=== PATIENT | male | born 1960 | race Caucasian/White ===

== ENCOUNTER 2019-03-11 13:19 | Outpatient (CLI) | payer MEDICARE, SELFPAY ==
--- NOTE | 2019-03-11 13:31 | XR_ITS ---
WS: [id number] LEFT HIP HISTORY: PAIN IN LEFT HIP COMPARISON: None available. LEFT hip: No acute fracture or dislocation. No soft tissue abnormality. No bone destruction. Mild narrowing and degenerative changes involving the superior acetabulum. XR/XR hip LT 2-3V wo/w pel* [id number] IMPRESSION: 1. No hip fracture. 2. Mild early osteoarthritis involving the superior hip joint.
--- NOTE | 2019-03-11 13:31 | XR_ITS ---
WS: [id number] LATERAL LUMBAR SPINE: 3 view. Lateral radiographs are performed in upright neutral, flexion and extension to the patient's toleranc e. HISTORY: POSTLAMINECTOMY SYNDROME COMPARISON: None available. Prior posterior lumbar fusion at L5-S1. Pedicle screws and vertical rods are intact. Severe disc spac e narrowing at L5-S1 with interbody spacer. The alignment at L5-S1 is difficult to visualize. There m ay be slight anterolisthesis of L5. No definite instability is demonstrated. L3 retrolisthesis by 2 mm with no instability. No fractures. Mild spondylitic changes throughout the lumbar spine. Scattered calcifications in the aorta. XR/XR lumbar spine f/e only [id number] IMPRESSION: 1. Prior posterior lumbar fusion at L5-S1. 2. No instability is demonstrated. Alignment at L5-S1 is limited due to the po stsurgical changes and degenerative disease. Instability is not confirmed.
== END 2019-03-11 13:20 | disposition home or self-care (01) ==
LOC: RADWPI 13:25
PROVIDERS: Family Provider Family Medicine; PCP Family Medicine; Visit Provider Nurse Practitioner
DX: M96.1 Postlaminectomy syndrome, not elsewhere classified (principal); M25.552 Pain in left hip; Z98.1 Arthrodesis status; M16.12 Unilateral primary osteoarthritis, left hip
CPT/HCPCS: 72120; 73502

== ENCOUNTER 2019-04-22 20:00 | Outpatient (CLI) | payer MEDICARE, SELFPAY | END 2019-04-22 20:01 | disposition home or self-care (01) | LOC: SLEEP 04-23 09:59 | PROVIDERS: Family Provider Family Medicine; PCP Family Medicine; Visit Provider Anesthesiology Pain Medicine | DX: G47.33 Obstructive sleep apnea (adult) (pediatric) (principal) | CPT/HCPCS: 95810 ==

== ENCOUNTER → 2019-06-30 08:55 | Outpatient (BNVA) | payer MEDICARE, SELFPAY | PROVIDERS: Family Provider Family Medicine; PCP Family Medicine; Visit Provider Family Medicine | DX: I10 Essential (primary) hypertension (principal); E78.2 Mixed hyperlipidemia; M54.16 Radiculopathy, lumbar region | CPT/HCPCS: 80053; 80061; 82044; 85025 ==

== ENCOUNTER → 2019-07-01 12:55 | Outpatient (BNVA) | payer MEDICARE, SELFPAY | PROVIDERS: Family Provider Family Medicine; PCP Family Medicine; Visit Provider Family Medicine | DX: I10 Essential (primary) hypertension (principal); E78.2 Mixed hyperlipidemia; M54.16 Radiculopathy, lumbar region; F17.219 Nicotine dependence, cigarettes, with unspecified nicotine-induced disorders; D64.9 Anemia, unspecified | CPT/HCPCS: 82607 ==

== ENCOUNTER 2019-07-11 07:16 | Emergency (ER) | payer MEDICARE, SELFPAY ==
[2019-07-11 07:25] VITALS: BMI 29.9
[2019-07-11 07:30] VITALS: BP 162/96; PULSE 116; RESP 18; TEMP 36.9; O2SAT 98
[2019-07-11 07:47] VITALS: BP 139/93; BP 157/89; BP 160/99; PULSE 111; PULSE 118; PULSE 120
--- NOTE | 2019-07-11 07:47 | CTR_ITS ---
PROCEDURE INFORMATION: Exam: CT Head Without Contrast Exam date and time: 07/11/2019 7:50 AM Age: 59 years old Clinical indication: Injury or trauma; Fall; Additional info: Dizzy TECHNIQUE: Imaging protocol: Computed tomography of the head without contrast. Radiation optimization: All CT scans at this facility use at least one of these dose optimization techniques: automated exposure control; mA and/or kV adjustment per patient size (includes targeted exams where dose is matched to clinical indication); or iterative reconstruction. COMPARISON: No relevant prior studies available. RADIATION DOSE METRICS: Total DLP: 883.57 mGy-cm FINDINGS: Brain: Normal. No hemorrhage. Unremarkable white matter. No mass effect. Ventricles: Normal. No ventriculomegaly. Bones/joints: Unremarkable. No acute fracture. Sinuses: Visualized sinuses are unremarkable. No fluid levels. Mastoid air cells: Visualized mastoid air cells are well aerated. Soft tissues: Unremarkable. Other findings: Hemispheric volume loss. CT/CT head wo con* [id number] IMPRESSION: 1. No acute intracranial process. Radiation Dose CTDIVOL = (mGy): DLP = 883.57 (mGy-cm)
--- NOTE | 2019-07-11 07:47 | CTR_ITS ---
PROCEDURE INFORMATION: Exam: CT Maxillofacial Without Contrast Exam date and time: 07/11/2019 7:50 AM Age: 59 years old Clinical indication: Injury or trauma; Fall; Initial encounter; Blunt trauma (contusions or hematomas); Nose TECHNIQUE: Imaging protocol: Computed tomography images of the face without contrast. Radiation optimization: All CT scans at this facility use at least one of these dose optimization techniques: automated exposure control; mA and/or kV adjustment per patient size (includes targeted exams where dose is matched to clinical indication); or iterative reconstruction. COMPARISON: No relevant prior studies available. RADIATION DOSE METRICS: Total DLP: 773.78 mGy-cm FINDINGS: Orbits: Orbits are normal. Globes are unremarkable. Bones/joints: Acute posttraumatic comminuted mildly displaced nasal bone fractures anteriorly. Fracture of the anterior aspect of the bony nasal septum and there is possible buckle fracture more posteriorly with irregularity. Acute fracture of the maxillary spine mildly displaced. Sinuses: Mucosal thickening left maxillary sinus. Dental: Dental caries with prominent dental metallic artifact. Scattered absence of dentition. Vasculature: Bilateral carotid vascular calcification. Soft tissues: Overlapping anterior nasal soft tissue edema. Other findings: Plate fixation partially visible at C4. CT/CT facial bones wo con* [id number] IMPRESSION: 1. Displaced comminuted anterior nasal bone fractures. 2. Maxillary spine fracture. 3. Anterior and more posterior comminuted bony nasal septal fracture. 4. Overlapping nasal soft tissue edema. 5. Left maxillary sinusitis. Radiation Dose CTDIVOL = (mGy): DLP = 773.78 (mGy-cm)
--- NOTE | 2019-07-11 07:47 | CTR_ITS ---
PROCEDURE INFORMATION: Exam: CT Cervical Spine Without Contrast Exam date and time: 07/11/2019 7:50 AM Age: 59 years old Clinical indication: Injury or trauma; Fall; Initial encounter; Blunt trauma TECHNIQUE: Imaging protocol: Computed tomography images of the cervical spine without contrast. Radiation optimization: All CT scans at this facility use at least one of these dose optimization techniques: automated exposure control; mA and/or kV adjustment per patient size (includes targeted exams where dose is matched to clinical indication); or iterative reconstruction. COMPARISON: [place] [id number] 11/27/2018 2:36 PM RADIATION DOSE METRICS: Total DLP: 717.89 mGy-cm FINDINGS: Vertebrae: Anterior plate fixation C4-C5 with interspace device at C4. Prominent degenerative hypertrophic formation C5-C6. Additional separate anterior plate fixation C6-C7 with interspace fusion at C6. No evidence of hardware complication. C2-C3: No significant disc protrusion. No severe spinal canal stenosis. No significant neural foraminal narrowing. C3-C4: No significant disc protrusion. No severe spinal canal stenosis. No significant neural foraminal narrowing. C4-C5: No severe canal stenosis. Mild bilateral neural foraminal narrowing greater on the left predominantly secondary to uncinate process hypertrophy. C5-C6: Mild right neural foraminal narrowing secondary to uncinate process hypertrophy. No severe canal stenosis. C6-C7: Posterior endplate irregularity without severe canal stenosis. Mild bony foraminal narrowing on the left. C7-T1: No significant disc protrusion. No severe spinal canal stenosis. No significant neural foraminal narrowing. Soft tissues: Areas of irregular nuchal ligament calcification posterior to the spinous process at C7 and T1. Findings at spinous process of C7 could additionally include a chronic or remote posttraumatic appearance. Auditory system: Soft tissue density at the left external auditory canal. Vasculature: Bilateral carotid vascular calcification. Lungs: Subpleural bleb formation lung apices. CT/CT cervical spin wo con* [id number] IMPRESSION: 1. No acute fracture. 2. Degenerative changes cervical spine. Radiation Dose CTDIVOL = (mGy): DLP = 717.89 (mGy-cm)
--- NOTE | 2019-07-11 07:49 | W.ED.FALL ---
HPI - Fall General: Chief Complaint: Fall Stated Complaint: dizzy/vision changes Time Seen by Provider: 07/11/19 07:28 History of Present Illness: HPI Narrative: 59-year-old male complaining of dizziness for the past month or so. He states he has had frequent falls, nearly always falling on his face. He presents with bruises and swelling to his forehead and nose. He states that his is told him his arms do not even go out to catch himself when he falls. He has been dizzy, with vertigo type symptoms as well. No trouble with speech. He has had blurry vision on and off. He does not feel weak. MD complaint: fall Fall from: standing Fall witnessed: yes, by family Place fall occurred: home Loss of consciousness: Unsure Prolonged down time: no Context: history of frequent falls Location of injury: head and face Associated symptoms-after fall: Reports headache(s), neck pain and vertigo; Denies abdominal pain, chest pain, confusion or hematuria Review of Systems Const: Denies: fever(s) or chills Eyes: Denies: change in vision or blurry vision ENMT: Reports: sinus pain; Denies: odynophagia, bleeding gums, dental pain, change in hearing or post nasal drip Card: Reports: dyspnea on exertion; Denies: chest pain, palpitations, irregular heart rhythm, edema, swelling of feet/ankles or orthopnea Resp: Denies: productive cough, non-productive cough or wheezing GI: Denies: abdominal pain, nausea, vomiting, rectal pain, hematochezia or melena : Denies: difficulty urinating, dysuria or hematuria Musc: Reports: neck pain; Denies: back pain or joint redness Skin/Breast: Denies: rash, pruritus or erythema Neuro: Reports: headache(s), dizziness and vertigo; Denies: confusion or seizure-like activity Psych: Denies: anxiety or auditory hallucinations PFSH ED PFSH: Medical History (Updated 07/11/19 @ 10:40 by Brigido Pavon DO) Anxiety Chronic lumbar radiculopathy Essential (primary) hypertension Gouty arthritis Mixed hyperlipidemia S/p nephrectomy Surgical History H/O ankle fusion H/O neck surgery History of back surgery S/P hernia repair S/P splenectomy Family History Father CAD (coronary artery disease) Diabetes Mother Cancer Social History Smoking and tobacco status: current every day smoker cigarettes Packs smoked per day: 1 Alcohol intake: current Alcohol intake frequency: holidays/special occasions only Physical Exam Const: GENERAL APPEARANCE: well developed ORIENTATION/CONSCIOUSNESS: Yes oriented to person, Yes oriented to place and Yes oriented to time HENMT: COMMON NORMALS: external ears normal and Normal external nose present HEAD & SCALP: no scalp tenderness FACE & SINUS: other (Ecchymosis with swelling and abrasion to the forehead and nose, no septal hematoma.) NOSE: Normal external nose present and No nasal discharge present EXTERNAL EAR: Yes external ears normal MOUTH: tongue normal THROAT: posterior oropharynx normal; no peritonsillar mass Eye: COMMON NORMALS: Equal, round and reactive pupils present, EOMs intact bilaterally and conjunctivae normal EYELID: eyelids normal CONJUNCTIVA: Yes conjunctivae normal PUPIL: Yes Equal, round and reactive pupils present Neck/C-Spine: COMMON NORMALS: full ROM GENERAL: No tracheal deviation CERVICAL SPINE: Yes Cervical spine tenderness Chest: COMMONS NORMALS: normal inspection of the chest CHEST: No tenderness Resp: COMMON NORMALS: clear to auscultation bilaterally EFFORT & INSPECTION: No tachypneic, No respiratory distress, No retractions, No uses accessory muscles and No tracheal deviation AUSCULTATION: clear to auscultation bilaterally, no rhonchi, no wheezes and lung sounds not diminished Cardio: COMMON NORMALS: regular rhythm RATE: tachycardic RHYTHM: regular rhythm HEART SOUNDS: no murmurs PERIPHERAL PULSES: radial pulses present GI: INSPECTION: No abdominal distension AUSCULTATION: No Hyperactive bowel sounds present and No Hypoactive bowel sounds present PALPATION: No Guarding due to palpation present (GI) and No Rigid due to palpation PERCUSSION: no dullness to percussion and no tympanic to percussion Neuro: SENSORIUM/ORIENTATION: Yes oriented to person, Yes oriented to place and Yes oriented to time Psych: COMMON NORMALS: mental status grossly normal Skin: COMMON NORMALS: no rashes or lesions noted GENERAL SKIN EXAM: no rashes or lesions noted Course Vital Signs: Vital signs: Vital Signs Temperature 98.4 F 07/11/19 07:30 Pulse Rate 109 H 07/11/19 10:42 Respiratory Rate 18 07/11/19 10:42 Blood Pressure 148/94 07/11/19 10:42 Pulse Oximetry 98 07/11/19 10:42 MDM - Fall MDM Narrative: Medical decision making narrative: 59-year-old male reporting frequent falls over the last month. He is a bit shaky on exam. His alcohol level is 21. He is likely withdrawing from alcohol, which may be the cause of his falling. His laboratory is benign. His head CT is negative. He does have nasal bone fractures he will be referred to ENT for this. He refused to give a urine, which is another confounding issue he will be discharged. Lab Data: Labs: Lab Results 07/11/19 07/11/19 07/11/19 Range/Units 08:14 08:14 08:14 WBC 8.1 (4.0-10.0) 10^3/ uL RBC 3.98 L (4.1-5.3) 10^6/u L Hgb 13.2 (11.7-16.6) g/dL Hct 39.4 L (42.0-52.0) % MCV 99.0 H (80-94) fL MCH 33.2 (28.0-34.0) pg MCHC 33.5 (30.0-36.0) g/dL RDW 14.6 (12.1-15.1) % Plt Count 532 H (130-400) 10^3/c mm MPV 9.7 (7.4-10.4) fL Neut % (Auto) 51.7 % Lymph % (Auto) 33.2 % [place] % (Auto) 11.1 % Eos % (Auto) 1.7 % Baso % (Auto) 2.2 % Neut # (Auto) 4.2 (1.8-7.7) 10^3/u L Lymph # (Auto) 2.7 (0.8-4.8) 10^3/u L [place] # (Auto) 0.9 (0.2-0.9) 10^3/u L Eos # (Auto) 0.1 (0.0-0.8) 10^3/u L Baso # (Auto) 0.2 H (0.0-0.1) 10^3/u L Nucleated RBC % (a uto) 0 % Nucleated RBCs # 0.0 /100WBC PT 14.00 H (10.5-13.3) SECO NDS INR 1.05 (0.8-1.2) APTT 26.7 (23.9-36.7) SECO NDS Sodium 137 (136-145) mmol/L Potassium 4.5 (3.5-5.1) mmol/L Chloride 98 (98-107) mmol/L Carbon Dioxide 23 (22-29) mmol/L Anion Gap 20.5 H (5-19) BUN 16 (6-20) mg/dL Creatinine 1.0 (0.7-1.2) mg/dL GFR Calculation 76.5 L (90-130) mL/min Glucose 91 (65-115) mg/dL Calculated Osmolal ity 280 L (285-295) mOsm/k g Calcium 9.8 (8.5-10.5) mg/dL Phosphorus 4.0 (2.5-4.5) mg/dL Total Bilirubin 0.6 (0.15-1.2) mg/dL AST 24 (0-40) U/L ALT 13 (0-41) U/L Alkaline Phosphata se 80 (40-130) IU/L Creatine Kinase 59 (39-308) U/L Troponin T Baselin e (0-15) ng/mL Total Protein 7.7 (6.6-8.7) g/dL Albumin 4.4 (3.5-5.2) g/dL Globulin 3.3 (1.3-4.6) g/dL Ethyl Alcohol 21 H (0-10) mg/dL /30/20 Range/Units 08:14 WBC (4.0-10.0) 10^3/ uL RBC (4.1-5.3) 10^6/u L Hgb (11.7-16.6) g/dL Hct (42.0-52.0) % MCV (80-94) fL MCH (28.0-34.0) pg MCHC (30.0-36.0) g/dL RDW (12.1-15.1) % Plt Count (130-400) 10^3/c mm MPV (7.4-10.4) fL Neut % (Auto) % Lymph % (Auto) % [place] % (Auto) % Eos % (Auto) % Baso % (Auto) % Neut # (Auto) (1.8-7.7) 10^3/u L Lymph # (Auto) (0.8-4.8) 10^3/u L [place] # (Auto) (0.2-0.9) 10^3/u L Eos # (Auto) (0.0-0.8) 10^3/u L Baso # (Auto) (0.0-0.1) 10^3/u L Nucleated RBC % (a uto) % Nucleated RBCs # /100WBC PT (10.5-13.3) SECO NDS INR (0.8-1.2) APTT (23.9-36.7) SECO NDS Sodium (136-145) mmol/L Potassium (3.5-5.1) mmol/L Chloride (98-107) mmol/L Carbon Dioxide (22-29) mmol/L Anion Gap (5-19) BUN (6-20) mg/dL Creatinine (0.7-1.2) mg/dL GFR Calculation (90-130) mL/min Glucose (65-115) mg/dL Calculated Osmolal ity (285-295) mOsm/k g Calcium (8.5-10.5) mg/dL Phosphorus (2.5-4.5) mg/dL Total Bilirubin (0.15-1.2) mg/dL AST (0-40) U/L ALT (0-41) U/L Alkaline Phosphata se (40-130) IU/L Creatine Kinase (39-308) U/L Troponin T Baselin e 7 (0-15) ng/mL Total Protein (6.6-8.7) g/dL Albumin (3.5-5.2) g/dL Globulin (1.3-4.6) g/dL Ethyl Alcohol (0-10) mg/dL Discharge Plan Discharge Patient Disposition: Home, Self-Care Clinical Impression: Fracture of face bones Qualifiers: Encounter type: initial encounter Facial bone/location: unspecified site of maxillary bone Fracture type: closed Laterality: unspecified laterality Qualified Code(s): S02.401A - Maxillary fracture, unspecified side, initial encounter for closed fracture Condition: Stable Prescriptions: [place] 5-325 mg tablet 1 tab PO Q6H PRN (Reason: pain) Qty: 7 RF: 0 No Action allopurinol 100 mg tablet 100 mg PO DAILY RF: 0 amitriptyline 50 mg tablet 50 mg PO DAILY Qty: 30 RF: 0 Sleeping 50 mg Capsule 50 mg PO PRN PRN (Reason: Sleep) RF: 0 Aleve 220 mg Tablet 220 mg PO Q8H PRN (Reason: Pain) RF: 0 Zocor 10 mg tablet 10 mg PO DAILY RF: 0 lisinopril 10 mg tablet 10 mg PO DAILY RF: 0 Discharge Orders: Discharge Order (Routine); Ordered 07/11/19 Ordered By: Brigido Pavon Referrals: Chad Sandoval MD [Physician] - 4-7 days Caroline Jauregui DO [Primary Care Provider] - 4-7 days Discharge Diet: Advance as tolerated Discharge Activity: Increase activity as tolerated Patient Instructions: Facial Fracture (ED) Activity Restrictions/Additional Instructions: Call Saturday to make an appointment with ENT regarding your facial fractures for follow-up. Do not drive a vehicle until cleared by your physician. Abstain from alcohol, as it can make falls worse. Return for new or other concerning symptoms. Discharge Date/Time: 07/11/19 10:42 Coding Level of Care Code ED Marketing Admin for Tee Fwd Exam Comprehensive
[2019-07-11 08:20] LABS: Basophils # 0.2 10^3/uL (0.0-0.1); Basophils % 2.2 %; Eosinophils # 0.1 10^3/uL (0.0-0.8); Eosinophils % 1.7 %; Hematocrit 39.4 % (42.0-52.0); Hemoglobin 13.2 g/dL (11.7-16.6); Lymphocytes # 2.7 10^3/uL (0.8-4.8); Lymphocytes % 33.2 %; Mean Corpuscular HGB Conc 33.5 g/dL (30.0-36.0); Mean Corpuscular Hemoglobin 33.2 pg (28.0-34.0); Mean Platelet Volume 9.7 fL (7.4-10.4); Monocytes # 0.9 10^3/uL (0.2-0.9); Monocytes % 11.1 %; Neutrophils # 4.2 10^3/uL (1.8-7.7); Neutrophils % 51.7 %; Nucleated Red Blood Cells % 0 %; Platelet Count 532 10^3/cmm (130-400); Red Blood Count 3.98 10^6/uL (4.1-5.3); Red Cell Distribution Width 14.6 % (12.1-15.1); White Blood Count 8.1 10^3/uL (4.0-10.0)
[2019-07-11 08:42] LABS: Alanine Aminotransferase 13 U/L (0-41); Albumin Level 4.4 g/dL (3.5-5.2); Alcohol Level 21 mg/dL (0-10); Alkaline Phosphatase 80 IU/L (40-130); Anion Gap 20.5 (5-19); Aspartate Amino Transferase 24 U/L (0-40); Blood Urea Nitrogen 16 mg/dL (6-20); Calcium 9.8 mg/dL (8.5-10.5); Carbon Dioxide 23 mmol/L (22-29); Chloride 98 mmol/L (98-107); Creatine Phosphokinase 59 U/L (39-308); Globulin 3.3 g/dL (1.3-4.6); Glomerular Filtration Rate 76.5 mL/min (90-130); Glucose 91 mg/dL (65-115); Osmolality Calculated 280 mOsm/kg (285-295); Potassium 4.5 mmol/L (3.5-5.1); Sodium 137 mmol/L (136-145); Total Bilirubin 0.6 mg/dL (0.15-1.2); Total Protein 7.7 g/dL (6.6-8.7); Troponin(5th) Baseline 7 ng/mL (0-15)
[2019-07-11 08:58] VITALS: BP 153/92
[2019-07-11] MEDS: ondansetron 4 MG Tablet PO (09:14)
[2019-07-11 09:30] LABS: INR 1.05 (0.8-1.2)
[2019-07-11 09:31] LABS: Partial Thromboplastin Time 26.7 SECONDS (23.9-36.7)
--- NOTE | 2019-07-11 10:29 | PC.NURSE ---
UA Attempted to collect urine for the third time, patient stated he has already attempted twice and could not go. Initially asked during initial assessment and 2 hours after assessment as well
[2019-07-11 10:42] VITALS: BP 148/94; PULSE 109; RESP 18; O2SAT 98
--- NOTE | 2019-07-14 15:34 | DCPLANNER ---
Addendum entered by Elena David 07/16/19 15:32: Patient had a follow up appointment with Dr. Parson, ENT on 07.14.19, patient did attend the appointment. Original Note: seed corn manager production had message to schedule a follow up appointment for patient with ENT, Dr. Parson. seed corn manager production faxed patients information to the ENT clinic. Clinic will call family independence case manager and patient with appointment information.
== END 2019-07-11 10:42 | disposition home or self-care (01) ==
PROVIDERS: Emergency Provider Emergency Medicine; Family Provider Family Medicine; PCP Family Medicine
DX: S02.2XXA Fracture of nasal bones, initial encounter for closed fracture (principal); S02.401A Maxillary fracture, unspecified side, initial encounter for closed fracture; W19.XXXA Unspecified fall, initial encounter; I10 Essential (primary) hypertension; E78.2 Mixed hyperlipidemia; Z90.5 Acquired absence of kidney; F17.210 Nicotine dependence, cigarettes, uncomplicated; Z79.899 Other long term (current) drug therapy
CPT/HCPCS: 12345; 36415; 70450; 70486; 72125; 80053; 80307; 82550; 84100; 84484; 85025; 85610; 85730; 99282; 99284; Q0162

== ENCOUNTER 2019-07-16 07:23 | Outpatient (CLI) | payer MEDICARE, SELFPAY ==
[2019-07-16 08:01] LABS: Basophils # 0.1 10^3/uL (0.0-0.1); Basophils % 1.4 %; Eosinophils # 0.5 10^3/uL (0.0-0.8); Eosinophils % 5.8 %; Hematocrit 36.9 % (42.0-52.0); Hemoglobin 12.3 g/dL (11.7-16.6); Lymphocytes # 3.3 10^3/uL (0.8-4.8); Lymphocytes % 38.1 %; Mean Corpuscular HGB Conc 33.3 g/dL (30.0-36.0); Mean Corpuscular Hemoglobin 33.7 pg (28.0-34.0); Mean Corpuscular Volume 101.1 fL (80-94); Mean Platelet Volume 9.9 fL (7.4-10.4); Monocytes % 11.6 %; Neutrophils # 3.7 10^3/uL (1.8-7.7); Nucleated Red Blood Cells % 0 %; Platelet Count 317 10^3/cmm (130-400); Red Blood Count 3.65 10^6/uL (4.1-5.3); Red Cell Distribution Width 15.4 % (12.1-15.1); White Blood Count 8.6 10^3/uL (4.0-10.0)
[2019-07-16 08:13] LABS: Anion Gap 14.5 (5-19); Blood Urea Nitrogen 14 mg/dL (6-20); Calcium 9.5 mg/dL (8.5-10.5); Carbon Dioxide 24 mmol/L (22-29); Chloride 102 mmol/L (98-107); Glomerular Filtration Rate 68.5 mL/min (90-130); Glucose 105 mg/dL (65-115); Osmolality Calculated 279 mOsm/kg (285-295); Potassium 4.5 mmol/L (3.5-5.1); Sodium 136 mmol/L (136-145)
--- NOTE | 2019-07-16 09:59 | ECG_ITS ---
Measurements Intervals [place] Rate: 92 P: 37 NM: 163 QRS: 6 QRSD: 88 T: 39 QT: 334 QTc: 415 SINUS RHYTHM INTERPRETATION BASED ON A DEFAULT AGE OF 40 YEARS No previous ECG available for comparison Electronically Signed On 07-16-2019 11:15:29 CDT by Medardo Davison M.D. [email or web address]
== END 2019-07-16 07:24 | disposition home or self-care (01) ==
LOC: RT 07:27
PROVIDERS: Family Provider Family Medicine; PCP Family Medicine; Visit Provider Specialist
DX: R42 Dizziness and giddiness (principal)
CPT/HCPCS: 80048; 85025; 93005

== ENCOUNTER → 2019-11-02 08:34 | Outpatient (BNVA) | payer MEDICARE, SELFPAY | PROVIDERS: Family Provider Family Medicine; PCP Family Medicine; Referring Provider Family Medicine; Visit Provider Licensed Practical Nurse | DX: M96.1 Postlaminectomy syndrome, not elsewhere classified (principal); F17.210 Nicotine dependence, cigarettes, uncomplicated | CPT/HCPCS: 99204 ==

== ENCOUNTER 2019-11-20 08:27 | Outpatient (CLI) | payer MEDICARE, SELFPAY ==
--- NOTE | 2019-11-20 08:50 | CT_ITS ---
WS: [id number] CT MYELOGRAM LUMBAR SPINE HISTORY: Low back pain TECHNIQUE: Contiguous 2.5 mm axial imaging performed from T12 through the mid sacral level. Bone and soft tissue windows reviewed. Sagittal and coronal reformats are submitted and reviewed. DLP: 1505.[address] scans at [facility] use at least one of these dose optimization techniques: automat ed exposure control; mA and/or kV adjustment per patient size (includes targeted exams where dose is matched to clinical indication); or iterative reconstruction. COMPARISON: 05/18/2018 MRI. Good distention of the thecal sac with contrast. Prior posterior lumbar fusion at L5-S1 with interbod y spacer. Mild narrowing of the disc space. The hardware is intact. L1-L2: L2-L3: Very slight annular disc bulging and osteophyte disease. No significant stenosis. L3-L4: Mild annular disc bulging and osteophytic ridging. There is minimal encroachment upon the vent ral thecal sac without significant stenosis. L4-L5: Mild hypertrophic bone formation and annular disc bulging. Soft tissue extends into the LEFT l ateral recess measuring 10 x 9 mm. Flattening of the LEFT lateral thecal sac. This was not present on the prior MRI or CT from 05/18/2018 and favor this is a disc protrusion. This would be contacting the L5 nerve root and also the nerve roots within the thecal sac. Moderate bilateral foraminal narrowing. L5-S1: Large posterior laminectomy defects. Thecal sac is patulous. Nerve roots are becoming peripher ally distributed in the thecal sac. No definite disc herniations are evident. Quality of the examinat ion is somewhat limited by the body habitus. Moderate bilateral foraminal narrowing. LEFT kidney has been surgically removed. Moderate atherosclerosis of aorta. CT/CT lumbar spine w con [id number] IMPRESSION: 1. Status post posterior lumbar fusion at L5-S1 with interbody spacer and larg e posterior laminectomy defects. 2. Soft tissue extending into the LEFT lateral recess at L4-5 with encroachmen t and displacement of the thecal sac and the L5 nerve root. As this was not pre sent on the prior studies I suspect this is probably a new moderate-sized disc protrusion. 3. Moderate bilateral foraminal stenosis at L4-5 and L5-S1.
--- NOTE | 2019-11-20 08:50 | CT_ITS ---
WS: [id number] CT CERVICAL MYELOGRAM HISTORY: Neck pain Technique: All CT scans at [facility] use at least one of these dose optimization techniq ues: automated exposure control; mA and/or kV adjustment per patient size (includes targeted exams wh ere dose is matched to clinical indication); or iterative reconstruction. DLP: 2246.23 mGycm COMPARISON: Neck pain. Good opacification of thecal sac with contrast. Straightening of the normal cervical lordosis. Prior anterior cervical fusion with interbody spacer a t C4-5. Additional separate anterior cervical fusion at C6-7 with interbody spacer. Fusion across the interbody spacers. There is very slight LEFT curvature of the cervical spine. Craniocervical junctio n is normal. The odontoid is intact. Soft tissue calcifications posteriorly in the lower cervical reg ion. No fractures. C1-C2: Normal. C2-C3: Normal. C3-C4: Small osteophytes encroaching upon the thecal sac. C4-C5: Mild osteophytic ridging with osteophytosis encroaching upon the thecal sac. There is mild marcie tral and bilateral foraminal stenosis. Slightly larger osteophyte LEFT lateral. C5-C6: Mild osteophytic ridging with facet joint arthritis. Very mild RIGHT foraminal narrowing. C6-C7: Hypertrophic bone formation encroaching upon the thecal sac. Mild narrowing of the central can al and foramen. RIGHT apical paraseptal emphysema. Carotid artery atherosclerosis is mild. CT/CT cervical spine w con [id number] IMPRESSION: 1. Prior anterior cervical fusions with interbody spacers at C4-5 and C6-7. 2. Mild central and bilateral foraminal stenosis at C4-5. 3. Multilevel osteophytosis with minimal encroachment upon the thecal sac from the C3-C7 levels. No high-grade stenosis.
--- NOTE | 2019-11-20 08:50 | IR_ITS ---
WS: [id number] CERVICAL AND LUMBAR MYELOGRAMs HISTORY: Low back pain COMPARISON: 03/11/2019 FLUOROSCOPY TIME: 3.0 minutes. Procedure, risks and complications were explained to the patient. Risks including bleeding, infection , headaches, allergic reaction and seizures. Consent has been obtained. With the patient in prone position the skin over the lumbar region is cleansed with ChloraPrep and an esthetized with lidocaine. 22-gauge spinal needle is inserted into the thecal sac at the appropriate level determined by fluoroscopy. Omnipaque 300; 13 ml is injected slowly under fluoroscopy with no co mplications. Needle bevel is perpendicular to the longitudinal fibers of the dura. Stylet is reinsert ed prior to removal of the needle. Patient tolerated the procedure well. Patient will proceed to CT f or further evaluation. Prior anterior cervical fusions at C4-5 and C6-7. Fusion across the interbody spacers at the fusion l evels. The posterior alignment is normal. No instability with flexion or extension but there is very little movement also. There is very slight anterolisthesis of C5 by less than 2 mm. Prior posterior lumbar fusion at L5-S1 with mild narrowing of the disc space and interbody fusion. Po sterior alignment is normal. With flexion and extension no instability is demonstrated. No fractures. Multilevel endplate osteophytes. Scattered atherosclerosis abdominal aorta. IR/IR myelogram spine cervic/lumb IMPRESSION: 1. Prior anterior cervical fusions with interbody spacers at C4-5 and C6-7. 2. Prior lumbar fusion at L5-S1 with interbody spacer. 3. No significant cervical or lumbar spine instability. 4. Very slight anterior listhesis of C5 by less than 2 mm.
[2019-11-20] MEDS: iohexol 300 mg/mL 50 mL Btl INTRATHECA (10:25)
== END 2019-11-20 08:28 | disposition home or self-care (01) ==
LOC: RADWPI 08:30
PROVIDERS: Family Provider Family Medicine; PCP Family Medicine; Visit Provider Licensed Practical Nurse
DX: M43.22 Fusion of spine, cervical region (principal); M43.27 Fusion of spine, lumbosacral region; M96.1 Postlaminectomy syndrome, not elsewhere classified; M48.061 Spinal stenosis, lumbar region without neurogenic claudication; M48.07 Spinal stenosis, lumbosacral region; M48.02 Spinal stenosis, cervical region
CPT/HCPCS: 62305; 72040; 72120; 72126; 72132; Q9967

== ENCOUNTER → 2019-11-24 07:52 | Outpatient (BNVA) | payer MEDICARE, SELFPAY | PROVIDERS: Family Provider Family Medicine; PCP Family Medicine; Visit Provider Licensed Practical Nurse | DX: M51.16 Intervertebral disc disorders with radiculopathy, lumbar region (principal); Z98.890 Other specified postprocedural states; F17.210 Nicotine dependence, cigarettes, uncomplicated | CPT/HCPCS: 99214 ==

== ENCOUNTER → 2019-11-30 08:15 | Outpatient (BNVA) | payer MEDICARE, SELFPAY | PROVIDERS: Family Provider Family Medicine; PCP Family Medicine; Referring Provider Licensed Practical Nurse; Visit Provider Anesthesiology Pain Medicine | DX: M51.16 Intervertebral disc disorders with radiculopathy, lumbar region (principal); M54.9 Dorsalgia, unspecified; M96.1 Postlaminectomy syndrome, not elsewhere classified; F17.210 Nicotine dependence, cigarettes, uncomplicated; Z79.891 Long term (current) use of opiate analgesic | CPT/HCPCS: 99205 ==

== ENCOUNTER → 2019-12-07 12:40 | Outpatient (BNVA) | payer MEDICARE, SELFPAY | PROVIDERS: Family Provider Family Medicine; PCP Family Medicine; Visit Provider Anesthesiology Pain Medicine | DX: M54.16 Radiculopathy, lumbar region (principal); M96.1 Postlaminectomy syndrome, not elsewhere classified; M54.9 Dorsalgia, unspecified; F17.210 Nicotine dependence, cigarettes, uncomplicated; Z79.891 Long term (current) use of opiate analgesic | CPT/HCPCS: 64483; 64484; J1100; J3490 ==

== ENCOUNTER → 2019-12-21 12:27 | Outpatient (BNVA) | payer MEDICARE, SELFPAY | PROVIDERS: Family Provider Family Medicine; PCP Family Medicine; Visit Provider Anesthesiology Pain Medicine | DX: M51.16 Intervertebral disc disorders with radiculopathy, lumbar region (principal); M48.062 Spinal stenosis, lumbar region with neurogenic claudication; Z79.891 Long term (current) use of opiate analgesic | CPT/HCPCS: 64483; 64484; J1100; J3490 ==

== ENCOUNTER → 2019-12-30 13:41 | Outpatient (BNVA) | payer MEDICARE, SELFPAY | PROVIDERS: Family Provider Family Medicine; PCP Family Medicine; Visit Provider Specialist | DX: M51.16 Intervertebral disc disorders with radiculopathy, lumbar region (principal); G62.9 Polyneuropathy, unspecified; F17.210 Nicotine dependence, cigarettes, uncomplicated | CPT/HCPCS: 95909 ==

== ENCOUNTER → 2019-12-31 08:35 | Outpatient (BNVA) | payer MEDICARE, SELFPAY | PROVIDERS: Family Provider Family Medicine; PCP Family Medicine; Visit Provider Family Medicine | DX: I10 Essential (primary) hypertension (principal); E78.2 Mixed hyperlipidemia; Z23 Encounter for immunization; M51.16 Intervertebral disc disorders with radiculopathy, lumbar region; F17.219 Nicotine dependence, cigarettes, with unspecified nicotine-induced disorders | CPT/HCPCS: 80053; 80061 ==

== ENCOUNTER → 2020-01-04 08:02 | Outpatient (BNVA) | payer MEDICARE, SELFPAY | PROVIDERS: Family Provider Family Medicine; PCP Family Medicine; Visit Provider Specialist | DX: M96.1 Postlaminectomy syndrome, not elsewhere classified (principal); M51.16 Intervertebral disc disorders with radiculopathy, lumbar region; F17.210 Nicotine dependence, cigarettes, uncomplicated | CPT/HCPCS: 95860 ==

== ENCOUNTER → 2020-01-11 10:33 | Outpatient (BNVA) | payer MEDICARE, SELFPAY | PROVIDERS: Family Provider Family Medicine; PCP Family Medicine; Visit Provider Anesthesiology Pain Medicine | DX: M51.16 Intervertebral disc disorders with radiculopathy, lumbar region (principal); M48.062 Spinal stenosis, lumbar region with neurogenic claudication; M54.9 Dorsalgia, unspecified; M96.1 Postlaminectomy syndrome, not elsewhere classified; F17.210 Nicotine dependence, cigarettes, uncomplicated; Z79.891 Long term (current) use of opiate analgesic | CPT/HCPCS: 99213; 99214 ==

== ENCOUNTER → 2020-01-26 09:21 | Outpatient (BNVA) | payer MEDICARE, SELFPAY | PROVIDERS: Family Provider Family Medicine; PCP Family Medicine; Visit Provider Family Medicine | DX: Z01.818 Encounter for other preprocedural examination (principal) | CPT/HCPCS: 80053; 85025 ==

== ENCOUNTER → 2020-02-10 10:47 | Day surgery (SDC) | payer MEDICARE, SELFPAY | PROVIDERS: PCP Family Medicine; Visit Provider Orthopaedic Surgery | DX: Z20.828 Contact with and (suspected) exposure to other viral communicable diseases (principal) | CPT/HCPCS: 87635 ==

== ENCOUNTER → 2020-02-16 10:29 | Outpatient (BNVA) | payer MEDICARE, SELFPAY | PROVIDERS: PCP Family Medicine; Visit Provider Anesthesiology Pain Medicine | DX: M51.16 Intervertebral disc disorders with radiculopathy, lumbar region (principal); M48.062 Spinal stenosis, lumbar region with neurogenic claudication; M54.9 Dorsalgia, unspecified; M96.1 Postlaminectomy syndrome, not elsewhere classified; F17.210 Nicotine dependence, cigarettes, uncomplicated; Z79.891 Long term (current) use of opiate analgesic | CPT/HCPCS: 99213 ==

== ENCOUNTER 2020-02-17 12:09 | Observation (INO) | payer MEDICARE, SELFPAY ==
[2020-02-10 11:22] VITALS: BMI 33.5
--- NOTE | 2020-02-10 12:12 | P.ANESASSM_ITS ---
Pre-Anesthetic Assessment Pre-Anesthetic Assessment: Height/Weight: Height 1.8 m Weight 108.862 kg Proposed Procedure: Operation Date: 02/17/20 12:05 Proposed Procedures p L4-S1 revision PLIF [id number], [id number], 82763, [id number], 59321 M48.062(Not Applicable) - Renato Nielsen DO Was Beta Emma taken within 24 hours: N/A Social: Social History: Tobacco and No alcohol Exam: Pre-Anes Outpt Exam: alert, oriented x 3 and regular rate & rhythm Additional Exam Findings (including area of procedure): rhonchi Airway: Submandibular: WNL Cervical ROM: Other (some limitaion to ROM) MP: 3 Additional comments: Chipped tooth upper arch Pulmonary: Pulmonary: COPD CV/HEM: CV/HEM: HTN : Comments: nephrectomy Hepatic: Hepatic: None reported GI: GI: None reported Metabolic: Metabolic: Morbid obesity Musc/skel: Musc/skel: Lower Back Pain Comments: Chronic pain/opioid, gout Neuropsych: Neuropsych: None reported Anesthetic Plan: ASA status: 3 Anesthesia: General Risk of > 500 ml blood loss (7ml/kg in children): No PFSH Anesthesia PFSH: Medical History (Updated 01/26/20 @ 09:10 by Caroline Jauregui DO) Anxiety Cervical post-laminectomy syndrome Chronic lumbar radiculopathy Essential (primary) hypertension Gouty arthritis Intervertebral disc disorder with radiculopathy of lumbar region Lumbar post-laminectomy syndrome Mixed hyperlipidemia S/p nephrectomy Surgical History H/O ankle fusion Left H/O neck surgery Dr. Gilmar Vasquez C4-C5 C6-C7 [facility]. [place], [place]. History of back surgery Dr. Gilmar Vasquez. [place], [place]. 01/2012 L5-S1 posterior fusion/fixation. 08/27/2011 L5-S1 decompression, reexploration. 02/2011 L5-S1 decompression. 11/03/2019 Operative records requested. History of nephrectomy Age 15. Congenital S/P hernia repair S/P splenectomy Age 15 Family History Father CAD (coronary artery disease) Diabetes Mother Cancer Social History Smoking and tobacco status: current every day smoker cigarettes Packs smoked per day: 0.75 Years cigarettes smoked: 45 Alcohol intake: current Alcohol intake frequency: holidays/special occasions only Household members: spouse Marital status: Current occupational status: disabled History of recent travel: No Data Anesthesia Cardiac Studies: No Data to Display
[2020-02-17] VITALS (15 sets, daily range): BP systolic 95–141; BP diastolic 58–84; PULSE 80–101; RESP 16–28; TEMP 36.3–36.8; O2SAT 95–99
--- NOTE | 2020-02-17 | XR_ITS ---
WS: [id number] C-ARM RADIOGRAPHS LUMBAR SPINE; 3 IMAGES HISTORY: L4-S1 REVISION PLIF COMPARISON: None available. Intraoperative imaging during revision of the posterior lumbar fusion. Fusion hardware is noted exten ding from L4 to S1 bilaterally. Interbody spacers at L4-5 and L5-S1. XR/XR lumbar spine 2-3V* [id number] IMPRESSION: Intraoperative imaging during posterior lumbar spine revision.
--- NOTE | 2020-02-17 | SCC_ITS ---
Procedure Done: 1. L4-S1 Interbody fusion with posterolateral fusion 2. Instrumentation L4-S1 3. Cage at L4/5 4. Laminectomy L4 for decompression of L5 nerve 5. use of autograft from same incision 6. allograft 7. Bone marrow aspirate from pedicle L4 same incision 8. Removal of hardware from L5 and S1 bilateral as well as rods 65.3 seconds of fluoroscopic guidance, for a cumulative dose of 56.34 mGy, was provided to Dr. Nielsen by the radiology department. C-arm images of the lumbar spine were saved for the patient's permanent record. [facility], [place]
[2020-02-17] MEDS: sodium chloride 0.9% 1,000 ML 30 ML IV (06:20)
--- NOTE | 2020-02-17 06:37 | P.ANESUD_ITS ---
Pre-Anesthetic Update Pre-Anesthetic Assessment: Date of Surgery/Procedure: 02/17/20 Preop Saskia gnosis: Lumbar stenosis Proposed Procedure: Operation Date: 02/17/20 07:00 Proposed Procedures p L4-S1 revision PLIF [id number], [id number], 86170, [id number], 09627 M48.062(Not Applicable) - Renato Nielsen, DO Any changes to Pre-Anesthetic Assessment?: No Last Intake: Intake Last Liquid Date 02/16/20 Last Liquid Time 23:30 Last Solid Date 02/16/20 Last Solid Time 17:30 Vitals: Temperature 98.3 F 02/17/20 06:12 Temperature Source Temporal Artery S can 02/17/20 06:12 Pulse Rate 101 H 02/17/20 06:12 Respiratory Rate 16 02/17/20 06:12 Blood Pressure 124/73 02/17/20 06:12 Blood Pressure Jennifer n 90 02/17/20 06:12 Pulse Oximetry 96 02/17/20 06:12 Oxygen Delivery Me thod 02/17/20 06:12 Exam: Pre-Anes Outpt Exam: alert, oriented x 3, clear to auscultation bilaterally and regular rate & rhythm Cardiac Studies: No Data to Display
--- NOTE | 2020-02-17 06:40 | W.PM.OPSUD ---
Surgery/Procedure H&P Update DATE OF PROCEDURE: February 17, 2020 DATE H&P PERFORMED: 02/17/20 H&P UPDATE INFORMATION: I have examined patient prior to procedure and No changes to prior documentation PREOP DIAGNOSIS: Lumbar stenosis PLANNED PROCEDURE: Operation Date: 02/17/20 07:00 Proposed Procedures p L4-S1 revision PLIF [id number], 39039, 98495, [id number], 08837 M48.062(Not Applicable) - Renato Nielsen DO
--- NOTE | 2020-02-17 06:42 | P.HP_ITS ---
Providers/Chief Complaint Primary Care Provider: Caroline Jauregui DO Chief Complaint: L4-S1 revision PLIF [id number], 06961, 63696, 12093,209 History of Present Illness Kenji Quinones is a 60 year old male here for back pain and leg pain left greater than right. He continues to have low back pain with decreased pain in his lower extremeties. The pain has decreased his sleep. Onset: years Duration: years Characteristics: sharp Severity: 8 Location: lumbar region Radiating symptoms: Aggravating factors: bending, any activity for to long Alleviating factors: medictions, sitting in his truck. Review of Systems Narrative: General ROS: negative for weight changes, fever ENT ROS: negative for nasal congestion, drainage or bleeding, sore throat, dysphagia or ear pain Eyes: PERRL Hematological and Lymphatic ROS: negative for swollen glands or abnormal bleeding Endocrine ROS: negative for polyuria/polydpsia or new changes in weight Respiratory ROS: negative for cough, shortness of breath, or wheezing Cardiovascular ROS: negative for chest pain or dyspnea on exertion Gastrointestinal ROS: negative for reflux, abdominal pain, change in bowel habits, or black or bloody stools Musculoskeletal ROS: negative for back pain, neck pain, or joint pain or swelling except for current problem Neurological ROS: negative for TIA or stoke symptoms Skin: no rash Medications/Allergies Home Medications Medication Instructions Recorded Confirmed Last Taken Type naproxen sodium [Aleve] 220 mg PO Q8H PRN 07/11/19 02/17/20 02/10/20 History allopurinol 100 mg tablet 100 mg PO DAILY #90 tab 10/22/19 02/17/20 02/16/20 Rx amitriptyline 50 mg tablet 50 mg PO DAILY #30 tab 01/19/20 02/17/20 02/16/20 Rx lisinopril 10 mg tablet 10 mg PO DAILY #90 tab 01/26/20 02/17/20 02/16/20 Rx simvastatin 10 mg tablet 10 mg PO DAILY #90 tab 01/26/20 02/17/20 02/16/20 Rx diphenhydramine 25 1 tab PO Q6H PRN 02/16/20 02/17/20 02/16/20 History mg-acetaminophen 500 mg tablet hydrocodone 10 mg-acetaminophen 1 tab PO Q8H PRN 30 Days #90 tab 02/16/20 02/17/20 02/16/20 Rx 325 mg tablet Allergies Allergy/AdvReac Type Severity Reaction Status Date / Time No Known Allergies Allergy Verified 02/17/20 06:06 PFSH Acute PFSH: Medical History Anxiety Cervical post-laminectomy syndrome Chronic lumbar radiculopathy Essential (primary) hypertension Gouty arthritis Intervertebral disc disorder with radiculopathy of lumbar region Lumbar post-laminectomy syndrome Mixed hyperlipidemia S/p nephrectomy Surgical History H/O ankle fusion Left H/O neck surgery Dr. Gilmar Vasquez C4-C5 C6-C7 [facility]. [place], [place]. History of back surgery Dr. Gilmar Vasquez. [place], [place]. 01/2012 L5-S1 posterior fusion/fixation. 08/27/2011 L5-S1 decompression, reexploration. 02/2011 L5-S1 decompression. 11/03/2019 Operative records requested. History of nephrectomy Age 15. Congenital S/P hernia repair S/P splenectomy Age 15 Family History Father CAD (coronary artery disease) Diabetes Mother Cancer Social History Smoking and tobacco status: current every day smoker cigarettes Packs smoked per day: 0.75 Years cigarettes smoked: 45 Alcohol intake: current Alcohol intake frequency: holidays/special occasions only Household members: spouse Marital status: Current occupational status: disabled History of recent travel: No Vitals/I&O/Wt Last Vital Signs Temp 98.3 F 02/17/20 06:12 Pulse 101 H 02/17/20 06:12 Resp 16 02/17/20 06:12 BP 124/73 02/17/20 06:12 Pulse Ox 96 02/17/20 06:12 Physical Exam Narrative: EXAM NARRATIVE: CONSTITUTIONAL: The patient is a normal appearing in no apparent distress. GENERAL: Patient in no acute distress. CARDIAC: Regular rate and rhythm. CHEST: Normal inspiratory effort, normal respiratory rate. ABDOMEN: Soft and nontender. SKIN: Clear, warm and intact. NEURO?PSYCH: The patient is alert and oriented to person, place and time. Sensorv /SILT Motor StrengthShoulder abduction C5 5/5Wrist extension C6 5/5Elbow extension C7 5/5Hand Cosmetic Assembler C8 5/5Finger abduction T15/5 Radial/ Ulnar/ Median n intact LowerSensory (SILT)Motor StrengthHin flexion L2/3Ant/inner thigh 5/5Hip adduction L2/3 5/5Knee extension L4 Lat thigh, 5/5Toe dorsiflexion L5 5/5Ankle dorsiflexion L5/ F24Mthyqgx flexion S1 5/5 DTRBleeps 2+Triceps 2+Brachioradialis 2+Patellar 2+Achilles 2+ MUSCULOSKELETAL: UPPEREXTREMITIES: The patient had full active ROM in fingers, wrist, elbow, and shoulder. The patient demonstrated ability to fully flex/extend/abduct/adduct fingers, make ok sign, cross 2nd/3rd digits, extend 1st digit fully.. Radial pulse 2+, CR<2 seconds. LOWER EXTREMITIES: Pt has full, active ROM of toes, ankle, knee, and hip. Dorsalis pedis/posterior tibialis pulses 2+, CR<2 seconds. SPINE: Skin warm, dry, intact. A&P Additional A&P Information Lumbar stenosis L4/5 status post L5/S1 PLIF Plan to PLIF L4/5 today Attestations Medical Necessity Statement*: failed conservative surgery pain control Coding Level of Care Code Acute Laboratory Courier for Tee Campos
--- NOTE | 2020-02-17 07:45 | P.ANESUD_ITS ---
Pre-Anesthetic Update Pre-Anesthetic Assessment: Date of Surgery/Procedure: 02/17/20 Preop Saskia gnosis: Lumbar stenosis Proposed Procedure: Operation Date: 02/17/20 07:00 Proposed Procedures p L4-S1 revision PLIF [id number], 99568, 49152, [id number],[id number], 38029 M48.062(Not Applicable) - Renato Nielsen, DO Any changes to Pre-Anesthetic Assessment?: No Last Intake: Intake Last Liquid Date 02/16/20 Last Liquid Time 23:30 Last Solid Date 02/16/20 Last Solid Time 17:30 Vitals: Temperature 98.3 F 02/17/20 06:12 Temperature Source Temporal Artery S can 02/17/20 06:12 Pulse Rate 101 H 02/17/20 06:12 Respiratory Rate 16 02/17/20 06:12 Blood Pressure 124/73 02/17/20 06:12 Blood Pressure Jennifer n 90 02/17/20 06:12 Pulse Oximetry 96 02/17/20 06:12 Oxygen Delivery Me thod 02/17/20 06:12 Exam: Pre-Anes Outpt Exam: alert, oriented x 3, clear to auscultation bilaterally and regular rate & rhythm Cardiac Studies: No Data to Display
[2020-02-17] MEDS: heparin, porcine 1,000 unit/mL INJ 10 mL 10000 UNIT INJECTION (07:55)
--- NOTE | 2020-02-17 11:57 | PM.OP ---
Operative Report Date of procedure: February 17, 2020 Pre-op Diagnosis: Lumbar stenosis Post-op diagnosis: same Procedure Done: 1. L4-S1 Interbody fusion with posterolateral fusion 2. Instrumentation L4-S1 3. Cage at L4/5 4. Laminectomy L4 for decompression of L5 nerve 5. use of autograft from same incision 6. allograft 7. Bone marrow aspirate from pedicle L4 same incision 8. Removal of hardware from L5 and S1 bilateral as well as rods Surgeon: Renato Nielsen Anesthesia: General Estimated blood loss (mL): 300 Condition: stable Disposition: PACU Procedure: 1. L4-S1 Interbody fusion with posterolateral fusion 2. Instrumentation L4-S1 3. Cage at L4/5 4. Laminectomy L4 for decompression of L5 nerve 5. use of autograft from same incision 6. allograft 7. Bone marrow aspirate from pedicle L4 same incision 8. Removal of hardware from L5 and S1 bilateral as well as rods Patient was brought to the operative suite. After undergoing anesthesia patient had neuro monitoring attached. Of note there was no issues with any of the neuro monitoring. Patient was then flipped into the prone position. All areas of impingement were well-padded. Patient was then prepped and draped in normal sterile fashion. Since was made using the previous incision and then extending up proximally. Once the incision was made the thoracolumbar fascia was split the L4 pedicle was identified at the L3-4 facet. And then the L5 and S1 screws were identified. Retractors were placed the hardware was removed from L5 and S1 bilaterally. This was done by removing the top And then the luann and then the screws the screws were exchanged with a Laurie screws in order to facilitate holding the luann there will be placed from L4-S1 once the screws were placed then 10 was brought to placing pedicle screws at L4 this was done using high-speed bur and a gearshift probe and then a ball probe and then the Laurie screws were placed. Attention was brought prior to the right screw using the region of cell aspiration kit to aspirate bone marrow from the pedicle this was done through the same incision. And then the pedicle screw was placed. At this point attention was then brought to doing the decompression for decompression the L5 nerve root. As well as the posterior lumbar interbody fusion cage. Microscope was brought in high-speed bur was used to perform the laminectomy as well as a facetectomy because there is some scar tissue she did more lateral in order to facilitate getting into the disc base without causing any damage to the nerves. Once the disc was exposed retractors placed protecting the thecal sac as well as the L4 nerve root. And then the disc was taken down using tom and curettes and cage was measured to be 9 is was packed with autograft allograft and allograft the osteoamp ostium sponge was packed anteriorly and then the cage was inserted. Once this was inserted then attention was brought to confirming that the L5 nerve root was complete decompressed after laminectomy and facetectomy on the left side. This was done. And then rods were attached from L4-S1 and caps were placed torqued and locked in position this was done bilaterally bone graft was then packed into the lateral gutters after decorticating the TB and facet joint. Bone graft was autograft osteoamp and sponges. Once this was completed wounds were irrigated prior to this and then the deep drain was placed and thoracolumbar was closed with 0 Vicryl skin was closed with 2-0 Vicryl and Monocryl suture sterile dressings applied patient transferred to the PACU in stable condition there were no issues with neuro monitoring.
[2020-02-17] MEDS: lactated ringers 1,000 ML 90 ML IV ×2 (12:51→23:40)
[2020-02-17] MEDS: HYDROcodone-acetaminophen 5-325 mg Tablet PO ×3 (13:01→21:15)
[2020-02-17] MEDS: morphine 4 mg/mL SDV 1 mL 2 MG IVP ×3 (13:40→22:37)
--- NOTE | 2020-02-17 16:07 | ANE.PACU2 ---
Inpatient post-anesthesia follow up: Airway intact: Yes Vital signs: Temperature 97.8 F Pulse Rate 87 Respiratory Rate 18 Blood Pressure 141/67 Pulse Oximetry 95 Oxygen Delivery Me thod Room Air Oxygen Flow Rate 8 Fraction of Inspir ed Oxygen Hydration adequate: Yes Nausea and vomiting: No Pain level: 3 Mental status: Baseline
[2020-02-17] MEDS: docusate sodium 100 mg Capsule PO (17:18)
[2020-02-17] MEDS: ketorolac 30 mg/mL INJ IVP (20:27)
[2020-02-18] VITALS: BP 102/64; PULSE 91; RESP 20; TEMP 36.4; O2SAT 95
[2020-02-18] MEDS: HYDROcodone-acetaminophen 5-325 mg Tablet PO ×2 (02:59→08:31)
[2020-02-18 04:07] VITALS: RESP 18
[2020-02-18] MEDS: morphine 4 mg/mL SDV 1 mL 2 MG IVP (04:07)
[2020-02-18 04:59] VITALS: BP 113/75; PULSE 79; RESP 18; TEMP 36.4; O2SAT 96
[2020-02-18] MEDS: enoxaparin 40 mg/0.4 mL Syringe SUBCUT (05:29)
--- NOTE | 2020-02-18 05:33 | PC.NURSE ---
SHIFT SUMMARY Slept for intervals. Says has been a long time since he got good sleep. Has been medicated tonight with po Hydrocodone, IV Morphine, and IV Toradol. Rating back pain at a 6 this morning versus rating at a 8 last evening. Says that is good for him. Dressing to medial back is intact with abd binder in place. Has some drainage through onto binder in mid back but pt thinks the Hemovac drain came part way out. Drain will not stay compressed this am. Had total of 45ml sanguinous drainage this shift and had been staying compressed as should until this morning. Has already been up in chair this am for about an hour and vidal well. IV at 90ml/hr rate. Voids well per urinal. Taking po well
[2020-02-18 07:17] VITALS: BP 133/81; PULSE 82; RESP 18; TEMP 36.7; O2SAT 97
--- NOTE | 2020-02-18 08:03 | P.DS_ITS ---
Discharge Providers Date of Admission: 02/17/20 12:09 Date of Discharge: February 18, 2020 Attending Provider at Admission: Renato Nielsen DO Attending Provider at Discharge: Renato Nielsen DO Primary Care Provider: Caroline Jauregui DO Reason for Visit Reason for Visit: L4-S1 revision PLIF [id number], [id number], [id number], [id number] Hospital Course Hospital Course Patient was admitted on 02/17/2020 after his revision L4-S1 fusion. Patient did great throughout his stay no complications. He will be discharged today. And follow-up in the clinic in 2 weeks. Physical Exam Narrative: EXAM NARRATIVE: 5/5 strength pt ambulating drainage on the corsette drain was pulled this am Urinary Catheter Management^: f: Cath Placed During This Visit: yes, but has since been removed by the nurse Reason for Continuing Indwelling Catheter: Decision to DC Catheter Urinary Catheter Date of Insertion: 02/17/20 Urinary Catheter Time of Insertion: 07:25 Date Urinary Catheter Removed: 02/17/20 Time Urinary Catheter Discontinued: 12:00 Discharge Data Data Completed and Pending: Completed Studies During Hospitalization Category Date Time Status XR lumbar spine 2 -3V* 19159 Routine Exams 02/17/20 Completed Pending at discharge Category Date Time Status C-arm Fluoroscopy [id number] Routine Exams 02/17/20 05:52 Taken Vitals: Last Vital Signs Temp 98.0 F 02/18/20 07:17 Pulse 82 02/18/20 07:17 Resp 18 02/18/20 07:17 BP 133/81 02/18/20 07:17 Pulse Ox 97 02/18/20 07:17 Discharge Plan Discharge Patient Disposition: Home Condition: Stable Prescriptions: Continued lisinopril 10 mg tablet 10 mg PO DAILY Qty: 90 RF: 1 Zocor 10 mg tablet 10 mg PO DAILY Qty: 90 RF: 1 diphenhydramine-acetaminophen [Acetaminophen PM Extra Str] 25-500 mg tablet 1 tab PO Q6H PRN (Reason: sleep) RF: 0 hydrocodone-acetaminophen 10-325 mg tablet 1 tab PO Q8H PRN (Reason: pain) 30 Days Qty: 90 RF: 0 allopurinol 100 mg tablet 100 mg PO DAILY Qty: 90 RF: 0 amitriptyline 50 mg tablet 50 mg PO DAILY Qty: 30 RF: 1 naproxen sodium [Aleve] 220 mg Tablet 220 mg PO Q8H PRN (Reason: Pain) RF: 0 Discharge Orders: Discharge Order (Routine); Ordered 02/18/20 Ordered By: Renato Nielsen Discharge Diet: Advance as tolerated Discharge Activity: Limit activity as instructed Activity Restrictions/Additional Instructions: Thank you for choosing [facility] for your care! The following is a list of instructions, from your provider, to follow upon your discharge to ensure you have the optimal recovery from your recent injury orsurgery. Follow-up care is a villegas part of your treatment and safety. Be sure to make and go to all appointments, and call your doctor if you are having problems. If you do not already have a follow-up appointment made, call Dr. Nielsen office in the next 1-3 days to make follow up appointment for 2 weeks at [phone]. It is also a good idea to know your test results and keep a list of the medicines you take. Medications will be prescribed for you at your provider's discretion. These medications are to be used as instructed; if they are taken more often that prescribed they will not be refilled early and in most cases will not be refilled at all. > When a refill is needed,you should contact [facility] 2-3 business d ays before your prescription runs out. Medications will NOT be refilled by gas station service attendant providers after hours! > Many pain medications contain Tylenol (Acetaminophen). Do not consume more than 4,000 mg of Tylenol per day in total with any combination of medications. > Pain medications can cause constipation. Please use an over the counter stool softener as directed, while taking pain medications. Consult your local pharmacist with questions or recommendations on stool softeners. If constipation persists, contact our office or your primary care provider. > While under our care,you are not to receive pain medications or other controlled substances from any other provider unless our office is notified and approves. Any attempts to do so will result in refusal to prescribe any further pain medications and possible dismissal from our practice. ? Your wound and/or dressing should remain clean and dry for 2 days after surgery. On postoperative day 2 (48 hours after your surgery) the dressing (if present) should be removed and it is okay to shower and get the incision wet. Pad dry afterwards. No further dressing should be required from that point on. Do not put any creams or ointments on the incision > It is normal for there to be a small amount of discharge (bloody or blood tinged) present from a surgical wound for the first 1-3days. > The wound should be examined twice a day for signs of infection. Mild redness or bruising is to be expected but indications that an infection maybe starting would include; An increase in redness, swelling, or discharge, a foul odor present around the incision, and/or a fever greater than 101 ?F ? Showering is permitted, however we ask that you do not take a bath, sit in a whirlpool / Jacuzzi, or go swimming for 1 month. For only the first 2 days after surgery, lt wilt be necessary for you to cover your wound/dressing with plastic and tape to keep it dry. ? Walking is essential for the healing process after surgery. We would like you to slowly advance your walking. This should be done on relatively flat clear ground (inside or out) or can be done on a treadmill. Anamika mber this goal does not have to happen all at once, slowly increase your distance and duration. This can be broken into more more than one walk per day as tolerated. Patients who walk as directed after surgery rarely require Physical Therapy. In the unlikely event this issue arises your provider will direct hospital staff to make the appropriate arrangements. ? No lifting over 5 pounds {a gallon of milk) or bending/twisting until further notice. Each of these activities places an unnecessary amount of stress onto the body and can impede the delicate healing process. > Instead of bending at the waist, keep your back straight and bend at the knees. > Instead of twisting your torso, keep your back straight and turn your entire body with your feet. ? You may sleep in any position which makes you comfortable. Many patients find comfort sleeping in a reclining chair. It is not abnormal to have difficulty sleeping for the first several weeks following your surgery. We recommend trying Benadry! or Tylenol PM as directed to help with your sleeping difficulties. Both medications are over the counter and available without prescription. ? NO SMOKING!!! Smoking dramatically increases the probability of developing postoperative wound infections. ? Common complaints after lumbar and/or thoracic spine surgery include, but are not limited to: numbness and/or tingling in the legs, pain around the incision and surrounding tissues, muscle spasms, or stiffness of the middle to low back. Contact our office if these symptoms persist or if an acute change occurs. ? No driving for the first 3-5days, and not while taking narcotics [] until seen at your follow-up appointment and cleared. There are no restrictions for riding on short trips, however if you take a longer trip, arrangements should be made to make regular stops to get out of the vehicle and stretch . ? Swelling is an unfortunate event that will take place with any surgery and is the primary source of your postoperative discomfort. While walking and regular approved activities helps control inflammation, there are additional steps you can take to minimizeswelling. > Place ice over the surgical site and surrounding tissue for twenty minutes, followed by applying a low/medium heat (heating pad) for an additional twenty minutes every 1-2 hours as needed for painrelief. > You may use of over the counter anti-inflammatory medications (Ibuprofen, Motrin, Aleve, Advil, etc) as directed on the package label. These types of medicines wm significantly reduce the amount of discomfort you experience after surgery from swelling. It should be noted that if you have and allergy to any of these medications, or a history of ulcers or kidney disease you should consult you primary care provider prior to starting these medications. Discharge Attestations Time Spent in Discharge Care*: less than 30 min Quality Metrics Clinical Quality Measures During this hospital stay, did patient experience: None Coding Level of Care Code Acute Clean In Places Operator for Tee Campos
[2020-02-18] MEDS: docusate sodium 100 mg Capsule PO (08:31)
[2020-02-18] MEDS: allopurinol 100 mg Tablet PO (08:31)
[2020-02-18] MEDS: atorvastatin 40 mg Tablet 20 MG PO (08:31)
[2020-02-18] MEDS: lisinopril 10 mg Tablet PO (08:31)
[2020-02-18] MEDS: ketorolac 30 mg/mL INJ IVP (09:53)
--- NOTE | 2020-02-18 10:40 | PC.CHAP ---
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 [] Patient/Family/Request visit [] Outpatient visit [] Follow-up visit [] Physician referral [] Code/Alert [] Routine visit [] Staff referral [] Actively dying [] Patient sleeping [] Family support [] [] Out of room [] Palliative care [] [] Receiving care in room [] Pre-surgical visit [] Trauma [] Long length of stay [] ICU visit [] Other: Relational/Emotional Strength [] Patient feels connected with others/family/visitors/staff [] Distress [] Loneliness/isolation [] Abandonment Spirituality of Patient [] Person of Ciera [] Attends Baptism of their Ciera [] Believes in Prayer [] Reads Bible or Confucianist materials [] There are Spiritual issues to be addressed Drainage Inspector Interventions [] Prayer [] Active listening [] Non-anxious presence [] Spiritual/emotional support [] Crisis/trauma care [] Spiritual counseling [] Bereavement support [] Provided bereavement packet [] Provided Bible/devotional materials [] Provided toy/stuffed animal, coloring book to patient or family member [] Provided Communion [] Anointing/Golden [] Salvation [] Completed spiritual assessment [] Other: Impact on Illness or Injury [] Angry [] Fearful [] Anxious [] Often cries [] Exhaustion [] Unable to work [] Unable to attend baptist [] Unable to walk/stand [] Unable to read [] Unable to drive [] Unable to eat/drink [] Unable to sleep [] Unable to be with family [] Patient intubated [] Other: Summary Declined bandmill operator visit Time spent with patient 5 mins
[2020-02-18 12:09] VITALS: BP 133/81; PULSE 82; RESP 18; TEMP 36.7; O2SAT 97
--- NOTE | 2020-02-18 13:02 | DCPLANNER ---
At the last minute, chester Rosenberg entered an order for a walker. Pt chooses whoever is in network and start with HOME. Medical Authorization Specialist faxes the order to HOME.
--- NOTE | 2020-02-19 15:02 | PC.RESP ---
SMOKING CESSATION INFORMATION SENT TO PATIENT.
== END 2020-02-18 12:10 | disposition home or self-care (01) ==
LOC: MEDSURG 12:10
PROVIDERS: Admitting Provider Orthopaedic Surgery; PCP Family Medicine; Visit Provider Orthopaedic Surgery
PROC: (CPT 20930; principal; 2020-02-17 07:00)
DX: M48.062 Spinal stenosis, lumbar region with neurogenic claudication (principal); M51.16 Intervertebral disc disorders with radiculopathy, lumbar region; Z79.891 Long term (current) use of opiate analgesic; F41.9 Anxiety disorder, unspecified; I10 Essential (primary) hypertension; E78.2 Mixed hyperlipidemia; F17.210 Nicotine dependence, cigarettes, uncomplicated; J44.9 Chronic obstructive pulmonary disease, unspecified; E66.01 Morbid (severe) obesity due to excess calories; Z68.33 Body mass index [BMI] 33.0-33.9, adult
CPT/HCPCS: 20930; 20936; 22614 ×2; 22633; 22842; 22850; 22853; 63047; 12345; 36415; 51702; 72100; 76000; 96372; 97116; 97161; 97530; C1713; C9359; G0378; J0131; J0690; J1100; J1644; J1650; J1885; J2270; J2370; J2405; J2704; J3010; J3490; J7030

== ENCOUNTER → 2020-03-15 08:45 | Outpatient (BNVA) | payer MEDICARE, SELFPAY | PROVIDERS: PCP Family Medicine; Visit Provider Anesthesiology Pain Medicine | DX: M51.16 Intervertebral disc disorders with radiculopathy, lumbar region (principal); M48.062 Spinal stenosis, lumbar region with neurogenic claudication; M96.1 Postlaminectomy syndrome, not elsewhere classified; M54.9 Dorsalgia, unspecified; F17.210 Nicotine dependence, cigarettes, uncomplicated; Z79.891 Long term (current) use of opiate analgesic | CPT/HCPCS: 99214 ==

== ENCOUNTER → 2020-03-31 09:10 | Outpatient (BNVA) | payer MEDICARE, SELFPAY | PROVIDERS: PCP Family Medicine; Visit Provider Orthopaedic Surgery | DX: M48.062 Spinal stenosis, lumbar region with neurogenic claudication (principal); M47.816 Spondylosis without myelopathy or radiculopathy, lumbar region | CPT/HCPCS: 72100 ==

== ENCOUNTER → 2020-04-12 08:30 | Outpatient (BNVA) | payer MEDICARE, SELFPAY | PROVIDERS: PCP Family Medicine; Visit Provider Anesthesiology Pain Medicine | DX: M51.16 Intervertebral disc disorders with radiculopathy, lumbar region (principal); M96.1 Postlaminectomy syndrome, not elsewhere classified; M48.062 Spinal stenosis, lumbar region with neurogenic claudication; M54.9 Dorsalgia, unspecified; M25.552 Pain in left hip; F17.210 Nicotine dependence, cigarettes, uncomplicated; Z98.890 Other specified postprocedural states | CPT/HCPCS: 99214 ==

== ENCOUNTER → 2020-05-10 10:36 | Outpatient (BNVA) | payer MEDICARE, SELFPAY | PROVIDERS: PCP Family Medicine; Visit Provider Anesthesiology Pain Medicine | DX: G89.29 Other chronic pain (principal); M51.16 Intervertebral disc disorders with radiculopathy, lumbar region; M48.062 Spinal stenosis, lumbar region with neurogenic claudication; M96.1 Postlaminectomy syndrome, not elsewhere classified; M54.9 Dorsalgia, unspecified; F17.210 Nicotine dependence, cigarettes, uncomplicated; Z98.890 Other specified postprocedural states; Z79.891 Long term (current) use of opiate analgesic | CPT/HCPCS: 99214 ==

== ENCOUNTER → 2020-05-12 08:11 | Outpatient (BNVA) | payer MEDICARE, SELFPAY | PROVIDERS: PCP Family Medicine; Visit Provider Orthopaedic Surgery | DX: M96.1 Postlaminectomy syndrome, not elsewhere classified (principal); M48.062 Spinal stenosis, lumbar region with neurogenic claudication; M47.816 Spondylosis without myelopathy or radiculopathy, lumbar region | CPT/HCPCS: 72100 ==

== ENCOUNTER → 2020-06-16 08:56 | Outpatient (BNVA) | payer MEDICARE, SELFPAY | PROVIDERS: PCP Family Medicine; Visit Provider Anesthesiology Pain Medicine | DX: M51.16 Intervertebral disc disorders with radiculopathy, lumbar region (principal); M54.9 Dorsalgia, unspecified; M48.062 Spinal stenosis, lumbar region with neurogenic claudication; M96.1 Postlaminectomy syndrome, not elsewhere classified; M25.552 Pain in left hip; F17.210 Nicotine dependence, cigarettes, uncomplicated; Z98.890 Other specified postprocedural states; Z79.891 Long term (current) use of opiate analgesic | CPT/HCPCS: 99214 ==

== ENCOUNTER → 2020-06-20 08:25 | Outpatient (BNVA) | payer MEDICARE, SELFPAY | PROVIDERS: PCP Family Medicine; Visit Provider Family Medicine | DX: I10 Essential (primary) hypertension (principal); E78.2 Mixed hyperlipidemia; M10.9 Gout, unspecified; F51.02 Adjustment insomnia; L57.0 Actinic keratosis; M51.16 Intervertebral disc disorders with radiculopathy, lumbar region; F17.219 Nicotine dependence, cigarettes, with unspecified nicotine-induced disorders | CPT/HCPCS: 80053 ==

== ENCOUNTER → 2020-06-21 12:57 | Outpatient (BNVA) | payer MEDICARE, SELFPAY | PROVIDERS: PCP Family Medicine; Visit Provider Anesthesiology Pain Medicine | DX: M25.552 Pain in left hip (principal); M48.062 Spinal stenosis, lumbar region with neurogenic claudication; F17.210 Nicotine dependence, cigarettes, uncomplicated; Z79.891 Long term (current) use of opiate analgesic | CPT/HCPCS: 20610; 77002; J1030; J3490 ==

== ENCOUNTER → 2020-07-13 08:37 | Outpatient (BNVA) | payer MEDICARE, SELFPAY | PROVIDERS: PCP Family Medicine; Visit Provider Anesthesiology Pain Medicine | DX: M51.16 Intervertebral disc disorders with radiculopathy, lumbar region (principal); M48.062 Spinal stenosis, lumbar region with neurogenic claudication; M54.9 Dorsalgia, unspecified; M96.1 Postlaminectomy syndrome, not elsewhere classified; M25.552 Pain in left hip; F17.210 Nicotine dependence, cigarettes, uncomplicated; Z98.890 Other specified postprocedural states; Z79.891 Long term (current) use of opiate analgesic | CPT/HCPCS: 99214 ==

== ENCOUNTER → 2020-07-18 08:37 | Outpatient (BNVA) | payer MEDICARE, SELFPAY | PROVIDERS: PCP Family Medicine; Visit Provider Family Medicine | DX: M10.9 Gout, unspecified (principal); I10 Essential (primary) hypertension; R06.2 Wheezing; F51.02 Adjustment insomnia; F17.219 Nicotine dependence, cigarettes, with unspecified nicotine-induced disorders | CPT/HCPCS: 82043 ==

== ENCOUNTER → 2020-08-11 08:01 | Outpatient (BNVA) | payer MEDICARE, SELFPAY | PROVIDERS: PCP Family Medicine; Visit Provider Orthopaedic Surgery | DX: M48.062 Spinal stenosis, lumbar region with neurogenic claudication (principal); M47.816 Spondylosis without myelopathy or radiculopathy, lumbar region; M96.1 Postlaminectomy syndrome, not elsewhere classified | CPT/HCPCS: 72100 ==

== ENCOUNTER → 2020-08-18 09:09 | Outpatient (BNVA) | payer MEDICARE, SELFPAY | PROVIDERS: PCP Family Medicine; Visit Provider Anesthesiology Pain Medicine | DX: G89.29 Other chronic pain (principal); M51.16 Intervertebral disc disorders with radiculopathy, lumbar region; M48.062 Spinal stenosis, lumbar region with neurogenic claudication; M96.1 Postlaminectomy syndrome, not elsewhere classified; M25.552 Pain in left hip; M54.9 Dorsalgia, unspecified; Z98.890 Other specified postprocedural states; Z79.891 Long term (current) use of opiate analgesic | CPT/HCPCS: 99214 ==

== ENCOUNTER → 2020-09-26 08:26 | Outpatient (BNVA) | payer MEDICARE, SELFPAY | PROVIDERS: PCP Family Medicine; Visit Provider Anesthesiology Pain Medicine | DX: G89.29 Other chronic pain (principal); M51.16 Intervertebral disc disorders with radiculopathy, lumbar region; M48.062 Spinal stenosis, lumbar region with neurogenic claudication; M96.1 Postlaminectomy syndrome, not elsewhere classified; M25.551 Pain in right hip; M79.605 Pain in left leg; Z98.890 Other specified postprocedural states; Z79.891 Long term (current) use of opiate analgesic | CPT/HCPCS: 99214 ==

== ENCOUNTER → 2020-10-24 08:30 | Outpatient (BNVA) | payer MEDICARE, SELFPAY | PROVIDERS: PCP Family Medicine; Visit Provider Anesthesiology Pain Medicine | DX: G89.29 Other chronic pain (principal); M48.062 Spinal stenosis, lumbar region with neurogenic claudication; M96.1 Postlaminectomy syndrome, not elsewhere classified; M51.16 Intervertebral disc disorders with radiculopathy, lumbar region; M25.552 Pain in left hip; M79.605 Pain in left leg; M54.2 Cervicalgia; Z98.890 Other specified postprocedural states; Z79.891 Long term (current) use of opiate analgesic | CPT/HCPCS: 99214 ==

== ENCOUNTER → 2020-11-18 09:22 | Outpatient (BNVA) | payer MEDICARE, SELFPAY | PROVIDERS: PCP Family Medicine; Visit Provider Family Medicine | DX: Z00.00 Encounter for general adult medical examination without abnormal findings (principal); Z13.6 Encounter for screening for cardiovascular disorders | CPT/HCPCS: 80061; 85025 ==

== ENCOUNTER → 2020-11-21 08:47 | Outpatient (BNVA) | payer MEDICARE, SELFPAY | PROVIDERS: PCP Family Medicine; Visit Provider Anesthesiology Pain Medicine | DX: M51.16 Intervertebral disc disorders with radiculopathy, lumbar region (principal); M48.062 Spinal stenosis, lumbar region with neurogenic claudication; M96.1 Postlaminectomy syndrome, not elsewhere classified; M25.552 Pain in left hip; M79.605 Pain in left leg; F17.210 Nicotine dependence, cigarettes, uncomplicated; Z98.890 Other specified postprocedural states; Z79.891 Long term (current) use of opiate analgesic | CPT/HCPCS: 99214 ==

== ENCOUNTER → 2020-12-05 17:48 | Outpatient (BNVA) | payer MEDICARE, SELFPAY | PROVIDERS: PCP Family Medicine; Visit Provider Surgery | DX: Z11.52 Encounter for screening for COVID-19 (principal); Z20.822 Contact with and (suspected) exposure to COVID-19 | CPT/HCPCS: 87635 ==

== ENCOUNTER 2020-12-08 07:58 | Day surgery (SDC) | payer MEDICARE, SELFPAY ==
[2020-12-05 13:37] VITALS: BMI 32.8
--- NOTE | 2020-12-08 08:35 | ANES.PREANE2 ---
Pre-Anesthetic Assessment Pre-Anesthetic Assessment: Height/Weight: Height 1.8 m Weight 106.594 kg Preop Diagnosis: panendoscopy Proposed Procedure: Operation Date: 12/08/20 09:30 Proposed Procedures p EGD/colon 03477 48613 Z12.11 K21.9(Not Applicable) - Jose Mason MD s Colonoscopy(Not Applicable) - Jose Mason MD Was Beta Emma taken within 24 hours: Yes Was Clonidine taken within 24 hours: N/A Social: Social History: Tobacco Packs per day: 1 Exam: Pre-Anes Outpt Exam: alert, oriented x 3, clear to auscultation bilaterally and regular rate & rhythm Airway: Submandibular: WNL Cervical ROM: Other (Some limitation s/p cervical laminectomy) MP: 2 Dentition: Chipped History/ROS: No significant complaints Pulmonary: Pulmonary: COPD CV/HEM: CV/HEM: HTN Comments: s/p splenectomy Metabolic: Metabolic: Hyperlipidemia Musc/skel: Musc/skel: Lower Back Pain and OA/DJD Neuropsych: Neuropsych: Anxiety Anesthetic Plan: ASA status: 3 Anesthesia: Anesthesia Evaluation and MAC Risk of > 500 ml blood loss (7ml/kg in children): No PFSH Anesthesia PFSH: Medical History Anxiety Cervical post-laminectomy syndrome Chronic lumbar radiculopathy Essential (primary) hypertension Gouty arthritis Intervertebral disc disorder with radiculopathy of lumbar region Lumbar post-laminectomy syndrome Mixed hyperlipidemia Surgical History H/O ankle fusion Left H/O neck surgery Dr. Gilmar Vasquez C4-C5 C6-C7 ACDFF. [place], [place]. History of back surgery Dr. Gilmar Vasquez. [place], [place]. 01/2012 L5-S1 posterior fusion/fixation. 08/27/2011 L5-S1 decompression, reexploration. 02/2011 L5-S1 decompression. 11/03/2019 Operative records requested. History of nephrectomy Age 15. Congenital 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 15 Status post right inguinal hernia repair Family History Father CAD (coronary artery disease) Diabetes Mother Cancer Social History (Updated 11/21/20 @ 09:20 by Rebeka Parekh LPN) Smoking and tobacco status: current every day smoker cigarettes Packs smoked per day: 0.75 Years cigarettes smoked: 45 Alcohol intake: current Alcohol intake frequency: holidays/special occasions only Alcohol type: beer Household members: spouse Marital status: Current occupational status: disabled History of recent travel: No Data Anesthesia Cardiac Studies: No Data to Display
[2020-12-08 08:40] VITALS: BP 145/87; PULSE 86; RESP 18; TEMP 36.2; O2SAT 95
[2020-12-08] MEDS: sodium chloride 0.9% 1,000 ML 30 ML IV (08:48)
--- NOTE | 2020-12-08 09:19 | P.HP_ITS ---
Same Day Surgery H&P Indication for Procedure/HPI DATE OF PROCEDURE: December 08, 2020 CHIEF COMPLAINT/INDICATIONFOR SURGICAL PROCEDURE: EGD/colonoscopy PREOP DIAGNOSIS: panendoscopy PLANNED PROCEDRUE: Operation Date: 12/08/20 09:30 Proposed Procedures p EGD/colon 91981 07898 Z12.11 K21.9(Not Applicable) - Jose Mason MD s Colonoscopy(Not Applicable) - Jose Mason MD Medications/Allergies* Home Medications Medication Instructions Recorded Confirmed Type naproxen sodium [Aleve] 220 mg PO Q8H PRN 07/11/19 12/08/20 History Allergies/Adverse Reactions Allergy/AdvReac Type Severity Reaction Status Date / Time No Known Allergies Allergy Verified 11/21/20 09:17 Current Medications: Generic Name Dose Route Start Last Admin Trade Name Freq PRN Reason Stop Dose Admin Sodium Chloride 1,000 mls @ 30 mls/hr 12/08/20 08:30 12/08/20 08:48 Sodium Chloride 0.9% IV 12/09/20 08:29 30 mls/hr .Q24H WILLOW Administration Pertinent History/Comorbid Conditions* Medical History (Updated 11/18/20 @ 10:23 by Caroline Jauregui DO) Anxiety Cervical post-laminectomy syndrome Chronic lumbar radiculopathy Essential (primary) hypertension Gouty arthritis Intervertebral disc disorder with radiculopathy of lumbar region Lumbar post-laminectomy syndrome Mixed hyperlipidemia Surgical History (Updated 09/28/20 @ 08:58 by Jose Mason MD) H/O ankle fusion Left H/O neck surgery Dr. Gilmar Vasquez C4-C5 C6-C7 ACDFF. [place], [place]. History of back surgery Dr. Gilmar Vasquez. [place], [place]. 01/2012 L5-S1 posterior fusion/fixation. 08/27/2011 L5-S1 decompression, reexploration. 02/2011 L5-S1 decompression. 11/03/2019 Operative records requested. History of nephrectomy Age 15. Congenital 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 15 Status post right inguinal hernia repair Family History (Updated 02/19/19 @ 08:59 by Lizeth Croft LPN) Father Mother Diabetes Father CAD (coronary artery disease) Father Cancer Mother Social History Smoking and tobacco status: current every day smoker cigarettes Packs smoked per day: 0.75 Years cigarettes smoked: 45 Alcohol intake: current Alcohol intake frequency: holidays/special occasions only Alcohol type: beer Household members: spouse Marital status: Current occupational status: disabled History of recent travel: No Pertinent Exam Findings alert, oriented x 3 and regular rate & rhythm Recommendations Surgery/Procedure today Coding Level of Care Code Acute 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
[2020-12-08 10:20] VITALS: BP 120/82; PULSE 84; RESP 20; TEMP 36.2; O2SAT 98
--- NOTE | 2020-12-08 10:58 | ANE.PACU2 ---
Inpatient post-anesthesia follow up: Airway intact: Yes Vital signs: Temperature 97.2 F Pulse Rate 84 Respiratory Rate 20 Blood Pressure 120/82 Pulse Oximetry 98 Oxygen Delivery Me thod Room Air Oxygen Flow Rate Fraction of Inspir ed Oxygen Hydration adequate: Yes Nausea and vomiting: No Pain level: 1 Mental status: Baseline
== END 2020-12-08 10:35 | disposition home or self-care (01) ==
PROVIDERS: PCP Family Medicine; Visit Provider Surgery
PROC: 0DJ08ZZ Inspection of Upper Intestinal Tract, Via Natural or Artificial Opening Endoscopic (ICD-10-PCS; CPT 43235; principal; 2020-12-08 09:30)
PROC: 0DJD8ZZ Inspection of Lower Intestinal Tract, Via Natural or Artificial Opening Endoscopic (ICD-10-PCS; CPT 45378; 2020-12-08 09:30)
DX: Z12.11 Encounter for screening for malignant neoplasm of colon (principal); K21.00 Gastro-esophageal reflux disease with esophagitis, without bleeding; K29.60 Other gastritis without bleeding; K64.8 Other hemorrhoids; I10 Essential (primary) hypertension; E78.2 Mixed hyperlipidemia; J44.9 Chronic obstructive pulmonary disease, unspecified; F17.210 Nicotine dependence, cigarettes, uncomplicated; Z90.81 Acquired absence of spleen; Z90.5 Acquired absence of kidney
CPT/HCPCS: 43239; 88305; 96360; 96361; G0121; J2704; J7030

== ENCOUNTER → 2020-12-29 08:29 | Outpatient (BNVA) | payer MEDICARE, SELFPAY | PROVIDERS: PCP Family Medicine; Visit Provider Anesthesiology Pain Medicine | DX: M51.16 Intervertebral disc disorders with radiculopathy, lumbar region (principal); M48.062 Spinal stenosis, lumbar region with neurogenic claudication; M25.552 Pain in left hip; M96.1 Postlaminectomy syndrome, not elsewhere classified; M79.605 Pain in left leg; Z98.890 Other specified postprocedural states; Z79.891 Long term (current) use of opiate analgesic | CPT/HCPCS: 99214 ==

== ENCOUNTER 2021-01-02 11:00 | Outpatient (CLI) | payer MEDICARE, SELFPAY ==
--- NOTE | 2021-01-02 11:03 | CT_ITS ---
WS: [id number] LDCT LUNG CANCER SCREENING HISTORY: NICOTINE Dependence, cigarettes TECHNIQUE: Axial imaging performed from the apices to 1 cm below the costophrenic angles. Coronal and sagittal reformats are submitted with axial MIP series. All CT scans at [facility] use at least one of these dose optimization techniques: automated exposure control; mA and/or kV adjustment per patient size (includes targeted exams where dose is matched to clinical indication); or iterativ e reconstruction. DLP: 56.17 mGy.cm DIvol: 1.58 mGy COMPARISON: None available. Diagnostic quality: Satisfactory Lungs: Mild anterior interstitial reticulations in the upper lung fernandez. No pulmonary nodule or mass . Central bilateral multilobar areas of very mild groundglass attenuation. Heart: Normal size heart. No effusion. Other findings: Mild atherosclerosis aorta. Pulmonary artery size is equal to the aorta. No adenopath y. Small hiatal hernia. Postsurgical changes are noted along the LEFT diaphragmatic surface. Defect i n the posterior LEFT diaphragm with herniated omental fat into the thorax. Spleen appears absent. CT/CT lung screening 21755 IMPRESSION: LUNG-RADS: 1S-Negative with Significant Findings FOLLOW UP: 12 Month: Continue annual screening with LDCT OTHER FINDINGS (S MODIFIER): Mild groundglass interstitial thickening centrally in multiple lobes. Most likely due to pneumonitis.
== END 2021-01-02 11:01 | disposition home or self-care (01) ==
LOC: CT 11:01
PROVIDERS: PCP Family Medicine; Visit Provider Family Medicine
DX: Z12.2 Encounter for screening for malignant neoplasm of respiratory organs (principal); F17.210 Nicotine dependence, cigarettes, uncomplicated
CPT/HCPCS: 71271

== ENCOUNTER 2021-01-16 09:21 | Outpatient (CLI) | payer MEDICARE, SELFPAY ==
--- NOTE | 2021-01-16 09:30 | XR_ITS ---
WS: [id number] ABDOMEN KUB CLINICAL INFORMATION: Right flank pain COMPARISON: None. FINDINGS: Surgical clips left upper quadrant from prior splenectomy and nephrectomy. Pedicle screw fixation L4- S1. Decompressive laminectomies. Pelvic phleboliths. XR/XR KUB 48685 Impression: 1. No visualized right renal parenchymal or ureteral calculi. 2. Surgical clips left upper quadrant from prior splenectomy and left nephrect christy. 3. Postoperative changes L4-S1 pedicle screw fixation with dorsal laminectomy defects and bone graft material.
== END 2021-01-16 09:22 | disposition home or self-care (01) ==
PROVIDERS: PCP Family Medicine; Visit Provider Family Medicine
DX: R10.9 Unspecified abdominal pain (principal); Z90.81 Acquired absence of spleen; Z90.5 Acquired absence of kidney; R39.9 Unspecified symptoms and signs involving the genitourinary system
CPT/HCPCS: 74018; 80053; 81000; 85025

== ENCOUNTER → 2021-01-26 08:31 | Outpatient (BNVA) | payer MEDICARE, SELFPAY | PROVIDERS: PCP Family Medicine; Visit Provider Anesthesiology Pain Medicine | DX: M51.16 Intervertebral disc disorders with radiculopathy, lumbar region (principal); M48.062 Spinal stenosis, lumbar region with neurogenic claudication; M96.1 Postlaminectomy syndrome, not elsewhere classified; M79.605 Pain in left leg; M25.552 Pain in left hip; Z98.890 Other specified postprocedural states; Z79.891 Long term (current) use of opiate analgesic; Z79.899 Other long term (current) drug therapy | CPT/HCPCS: 99214 ==

== ENCOUNTER → 2021-02-16 07:58 | Outpatient (BNVA) | payer MEDICARE, SELFPAY | PROVIDERS: PCP Family Medicine; Visit Provider Orthopaedic Surgery | DX: M48.062 Spinal stenosis, lumbar region with neurogenic claudication (principal); M96.1 Postlaminectomy syndrome, not elsewhere classified | CPT/HCPCS: 72110 ==

== ENCOUNTER → 2021-03-02 08:59 | Outpatient (BNVA) | payer MEDICARE, SELFPAY | PROVIDERS: PCP Family Medicine; Referring Provider Orthopaedic Surgery; Visit Provider Anesthesiology Pain Medicine | DX: M51.16 Intervertebral disc disorders with radiculopathy, lumbar region (principal); M48.062 Spinal stenosis, lumbar region with neurogenic claudication; M25.552 Pain in left hip; M79.605 Pain in left leg; M96.1 Postlaminectomy syndrome, not elsewhere classified; Z79.899 Other long term (current) drug therapy | CPT/HCPCS: 99214 ==

== ENCOUNTER → 2021-03-29 13:42 | Outpatient (BNVA) | payer MEDICARE, SELFPAY | PROVIDERS: PCP Family Medicine; Visit Provider Anesthesiology Pain Medicine | DX: M54.16 Radiculopathy, lumbar region (principal); M48.062 Spinal stenosis, lumbar region with neurogenic claudication | CPT/HCPCS: 62323; J1040; J3490 ==

== ENCOUNTER → 2021-04-13 09:14 | Outpatient (BNVA) | payer MEDICARE, SELFPAY | PROVIDERS: PCP Family Medicine; Visit Provider Anesthesiology Pain Medicine | DX: M48.062 Spinal stenosis, lumbar region with neurogenic claudication (principal); M51.16 Intervertebral disc disorders with radiculopathy, lumbar region; M96.1 Postlaminectomy syndrome, not elsewhere classified; M54.2 Cervicalgia; M25.552 Pain in left hip; M79.605 Pain in left leg; F17.210 Nicotine dependence, cigarettes, uncomplicated; Z79.899 Other long term (current) drug therapy | CPT/HCPCS: 99214 ==

== ENCOUNTER 2021-05-03 06:00 | Outpatient (RCR) | payer MEDICARE, SELFPAY | END 2021-05-11 23:59 | disposition home or self-care (01) | LOC: SPT 06:00 | PROVIDERS: PCP Family Medicine; Referring Provider Orthopaedic Surgery; Visit Provider Orthopaedic Surgery | DX: M54.50 Low back pain, unspecified (principal); M54.2 Cervicalgia | CPT/HCPCS: 97032; 97110; 97161 ==

== ENCOUNTER → 2021-05-16 08:26 | Outpatient (BNVA) | payer MEDICARE, SELFPAY | PROVIDERS: PCP Family Medicine; Visit Provider Family Medicine | DX: I10 Essential (primary) hypertension (principal); M54.6 Pain in thoracic spine; K21.9 Gastro-esophageal reflux disease without esophagitis; G89.29 Other chronic pain; F17.219 Nicotine dependence, cigarettes, with unspecified nicotine-induced disorders | CPT/HCPCS: 80053 ==

== ENCOUNTER → 2021-05-18 07:48 | Outpatient (BNVA) | payer MEDICARE, SELFPAY | PROVIDERS: PCP Family Medicine; Visit Provider Orthopaedic Surgery | DX: M48.062 Spinal stenosis, lumbar region with neurogenic claudication (principal); Z98.1 Arthrodesis status | CPT/HCPCS: 72110; 99213 ==

== ENCOUNTER → 2021-07-06 07:42 | Outpatient (BNVA) | payer MEDICARE, SELFPAY | PROVIDERS: PCP Family Medicine; Visit Provider Orthopaedic Surgery | DX: M48.062 Spinal stenosis, lumbar region with neurogenic claudication (principal) | CPT/HCPCS: 72100; 99213 ==

== ENCOUNTER → 2021-11-23 09:56 | Outpatient (BNVA) | payer MEDICARE, SELFPAY | PROVIDERS: PCP Family Medicine; Visit Provider Family Medicine | DX: E78.2 Mixed hyperlipidemia (principal); I10 Essential (primary) hypertension | CPT/HCPCS: 80053; 80061; 85025 ==

== ENCOUNTER → 2021-12-07 07:58 | Outpatient (BNVA) | payer MEDICARE, SELFPAY | PROVIDERS: PCP Family Medicine; Visit Provider Orthopaedic Surgery | DX: M47.22 Other spondylosis with radiculopathy, cervical region (principal); Z98.1 Arthrodesis status; M47.812 Spondylosis without myelopathy or radiculopathy, cervical region | CPT/HCPCS: 72040; 72100; 99214 ==

== ENCOUNTER 2022-01-15 06:52 | Outpatient (CLI) | payer MEDICARE, SELFPAY ==
--- NOTE | 2022-01-15 07:15 | MR_ITS ---
WS: [id number] MRI CERVICAL SPINE NONCONTRAST AND CONTRAST TECHNIQUE: Sagittal T1, T2 and STIR imaging. Axial T2, gradient, and fiesta imaging. Post gadolinium images obtained. CLINICAL INFORMATION: previous cervical fusion, numbness and tingling COMPARISON: None. FINDINGS: Straightening of the normal cervical lordosis. Postoperative changes C4-C5 and C6-C7 ACDF. Cord signal is normal. No high-grade central canal stenos is. C2-C3: Normal. C3-C4: Mild disc osteophytic ridging. Moderate LEFT bony foraminal narrowing. Mild facet arthropathy. C4-C5: Mild LEFT greater than RIGHT bony foraminal narrowing. Mild facet arthropathy. C5-C6: Postoperative changes. Mild bilateral bony foraminal narrowing. Mild facet arthropathy. C6-C7: Mild LEFT greater than RIGHT bony foraminal narrowing. Spinal canal is patent. C7-T1: Mild RIGHT and no significant LEFT foraminal narrowing. Spinal canal is patent. Visualized brain stem structures: Normal. Prevertebral soft tissues: Normal. MR/MR cervical spine wo/w [id number] IMPRESSION: Images degraded due to susceptibility artifact from hardware. 1. Straightening of the normal cervical lordosis. Cord signal is normal. 2. Prior postoperative changes ACDF C4-C5 and C6-C7. 3. No significant central canal stenosis. Cord signal is normal. 4. Moderate LEFT C3-C4 bony foraminal narrowing. 5. Otherwise mild to moderate bony foraminal narrowing worse at LEFT C4-C5, bi lateral C5-C6, LEFT C6-C7, and RIGHT C7-T1.
[2022-01-15] MEDS: gadobenate dimeglumine 20 mL vial IV (07:57)
== END 2022-01-15 06:53 | disposition home or self-care (01) ==
LOC: RAD 06:53
PROVIDERS: PCP Family Medicine; Visit Provider Orthopaedic Surgery
DX: Z98.1 Arthrodesis status (principal); R20.0 Anesthesia of skin; R20.2 Paresthesia of skin; M96.1 Postlaminectomy syndrome, not elsewhere classified
CPT/HCPCS: 72156; A9577

== ENCOUNTER → 2022-01-23 07:50 | Outpatient (BNVA) | payer MEDICARE, SELFPAY | PROVIDERS: PCP Family Medicine; Visit Provider Orthopaedic Surgery | DX: M47.22 Other spondylosis with radiculopathy, cervical region (principal) | CPT/HCPCS: 99214 ==

== ENCOUNTER 2022-02-23 10:50 | Day surgery (SDC) | payer MEDICARE, SELFPAY ==
[2022-02-19 08:31] VITALS: BMI 36.6
--- NOTE | 2022-02-19 08:46 | ANES.PREANE2 ---
Pre-Anesthetic Assessment Height/Weight: Height 1.8 m Weight 119.295 kg Preop Diagnosis: Cervical spondylosis with radiculopathy Operation Date: 02/23/22 07:00 Proposed Procedures p stay LIF at the C5-6 level 93196/98930/30789/37749/75212/M47.22(Not Applicable) - Renato Nielsen, DO Familial anesthetic complications: None Social Tobacco and No alcohol Exam alert, oriented x 3, clear to auscultation bilaterally and regular rate & rhythm Airway Mallampati: Class III Dentition: other (permanent bridge) Pulmonary Chronic Obstructive Pulmonary Disease (Not symptomatic, doesn't require daily albuteroluse) CV/HEM Hypertension nephrectomy and splenectomy (infection at age 15) Hepatic None reported GI Gastroesophageal Reflux Disease Metabolic Morbid Obesity [facility] [place] None reported Neuropsych Anxiety and Neuropathy Anesthetic Plan ASA status: 3 Anesthesia: General Risk of > 500 ml blood loss (7ml/kg in children): No Medications/Allergies Home Medications Medication Instructions Recorded Confirmed Last Taken Type cyclobenzaprine 10 mg tablet 10 mg PO TID PRN muscle spasm #90 01/23/22 02/19/22 02/17/22 Rx tabs Intraoperative neuromonitoring #1 ea 02/19/22 Unknown Rx albuterol sulfate 90 mcg/actuation 2 puff inhalation QID PRN 02/19/22 02/19/22 02/18/22 History aerosol inhaler Shortness Of Breath Or Wheezing allopurinol 100 mg tablet 100 mg PO BEDTIME 02/19/22 02/19/22 02/18/22 History amitriptyline 75 mg tablet 75 mg PO DAILY 02/19/22 02/19/22 02/18/22 History budesonide-formoterol HFA 160 2 puff inhalation BID 02/19/22 02/19/22 02/18/22 History mcg-4.5 mcg/actuation aerosol inhaler (Symbicort) carvedilol 6.25 mg tablet 6.25 mg PO BID 02/19/22 02/19/22 02/19/22 History lisinopril 10 mg tablet 10 mg PO BEDTIME 02/19/22 02/19/22 02/18/22 History simvastatin 10 mg tablet 10 mg PO BEDTIME 02/19/22 02/19/22 02/18/22 History tizanidine 2 mg tablet 2 mg PO TID PRN Spasms 02/19/22 02/19/22 Unknown History Allergies Allergy/AdvReac Type Severity Reaction Status Date / Time No Known Allergies Allergy Verified 01/23/22 08:12 [facility] Anesthesia Medical History Anxiety Cervical post-laminectomy syndrome Chronic lumbar radiculopathy Essential (primary) hypertension Gouty arthritis Intervertebral disc disorder with radiculopathy of lumbar region Lumbar post-laminectomy syndrome Mixed hyperlipidemia Nausea & vomiting Viral syndrome Surgical History H/O ankle fusion Left H/O esophagogastroduodenoscopy (12/08/20) Grade a esophagitis, mild nonerosive gastritis H/O neck surgery Dr. Gilmar Vasquez C4-C5 C6-C7 ACDFF. [place], [place]. History of back surgery Dr. Gilmar Vasquez. [place], [place]. 01/2012 L5-S1 posterior fusion/fixation. 08/27/2011 L5-S1 decompression, reexploration. 02/2011 L5-S1 decompression. 11/03/2019 Operative records requested. History of nephrectomy Age 15. 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
--- NOTE | 2022-02-23 | XR_ITS ---
WS: [id number] Cervical spine, C-arm fluoroscopy views, 02/23/2022. Clinical Data: stay lif cage c5-6 Comparison: None. Findings: Dr. Nielsen performed a C5-C6 anterior cervical fusion. XR/XR cervical spine 3V* [id number] Impression: Anterior cervical C5-C6 fusion.
[2022-02-23 11:01] VITALS: BP 134/72; PULSE 99; RESP 18; TEMP 36.4; O2SAT 96
--- NOTE | 2022-02-23 11:23 | W.PM.OPSUD ---
Surgery/Procedure H&P Update DATE OF PROCEDURE: February 23, 2022 DATE H&P PERFORMED: 01/23/22 H&P UPDATE INFORMATION: I have reviewed H&P completed within last 30 days, I have examined patient prior to procedure and No changes to prior documentation PREOP DIAGNOSIS: Cervical spondylosis with radiculopathy PLANNED PROCEDURE: Operation Date: 02/23/22 14:00 Proposed Procedures p stay LIF at the C5-6 level 10559/27826/75730/57889/83013/M47.22(Not Applicable) - Renato Nielsen DO
[2022-02-23] MEDS: sodium chloride 0.9% 1,000 ML 30 ML IV (11:30)
--- NOTE | 2022-02-23 11:52 | P.ANESUD_ITS ---
Pre-Anesthetic Update Pre-Anesthetic Assessment: Date of Surgery/Procedure: 02/23/22 Preop Saskia gnosis: Cervical spondylosis with radiculopathy Proposed Procedure: Operation Date: 02/23/22 14:00 Proposed Procedures p stay LIF at the C5-6 level [id number]/M47.22(Not Applicable) - Renato Nielsen, DO Any changes to Pre-Anesthetic Assessment?: No Last Intake: Intake Last Liquid Date 02/23/22 Last Liquid Time 02:00 Last Solid Date 02/22/22 Last Solid Time 19:00 Vitals: Temperature 97.5 F L 02/23/22 11:01 Temperature Source Temporal Artery S can 02/23/22 11:01 Pulse Rate 99 02/23/22 11:01 Respiratory Rate 18 02/23/22 11:01 Blood Pressure 134/72 02/23/22 11:01 Blood Pressure Jennifer n 92 02/23/22 11:01 Pulse Oximetry 96 02/23/22 11:01 Oxygen Delivery Me thod 02/23/22 11:16 Exam: Pre-Anes Outpt Exam: alert, oriented x 3, clear to auscultation bilaterally and regular rate & rhythm Cardiac Studies: No Data to Display
[2022-02-23] MEDS: ceFAZolin 2,000 MG in sodium chloride 0.9% (plus) 50 ML 100 MG IV (12:33)
[2022-02-23 14:15] VITALS: BP 131/81; PULSE 80; RESP 20; TEMP 36.1; O2SAT 96
[2022-02-23 14:20] VITALS: BP 80/58; PULSE 79; RESP 18; O2SAT 93
[2022-02-23 14:24] VITALS: BP 117/67; PULSE 77; RESP 18; TEMP 36.1; O2SAT 93
--- NOTE | 2022-02-23 14:26 | PM.OP ---
Operative Report Date of procedure: February 23, 2022 Pre-op diagnosis: Preop Diagnosis Cervical spondylosis with radiculopathy Post-op diagnosis: same Procedure done: 1. Anterior diskectomy C5/6 2. Insertion of cage C5/6 3. Instrumentation with anterior plate from C5-C6 4. Use of allograft Surgeon: Renato Nielsen Registered Occupational Therapist: Gianni Trent Registered Occupational Therapist: The surgical nurse practitioner, Gianni Trent, PAC was needed for his expertise under the microscope. He was important and necessary throughout the procedure to complete in a safe and timely manner. He assisted with patient positioning prepping and draping tissue retraction suctioning of the operative field protection of the dural sac and tissue closure Estimated blood loss (mL): 100 Procedure: 1. Anterior diskectomy C5/6 2. Insertion of cage C5/6 3. Instrumentation with anterior plate from C5-C6 4. Use of allograft The patient was taken to the operating room, where he underwent general endotracheal anesthesia without complications. He was then positioned supine on the operating table, and all areas of impingement were well padded. The arms were carefully padded and tucked at his sides. A roll was placed between the shoulder blades.. An x-ray was done to determine the appropriate level for the skin incision. The entire neck was then sterilely prepped and draped in the usual fashion. Neuromonitoring was attached prior to prepping. A transverse skin incision was made and carried down to the platysma muscle. This was then split in line with its fibers. Blunt dissection was carried down medial to the carotid sheath and lateral to the trachea and esophagus until the anterior cervical spine was visualized. A needle was placed into a disc and an x-ray was done to determine its location. The longus colli muscles were then elevated bilaterally with the electrocautery unit. Self-retaining retractors were placed deep to the longus colli muscle. Attention was brought to the C5/6 level that was confirmed on x-ray. The plate above and below the C5-6 disc space was identified. The microscope was then brought in. A radical anterior discectomies were performed at C5/6. This included complete removal of the anterior annulus, nucleus, and posterior annulus. The posterior longitudinal ligament was removed as were the posterior osteophytes. Foraminotomies were then accomplished bilaterally. This was done using a high speed deniz, kerrison rongeurs and curretes Once all of this was accomplished, the curved currette was used to check for any residual compression. The central canal was wide open as were the foramen. A high-speed bur was used to remove the cartilaginous endplates above and below the interspace. Bleeding cancellous bone was exposed. The disc space were measured and appropriate size cage were placed sterilely onto the field. Allograft graft was packed into the cages. The cage was then placed and there was good juxtaposition against the bleeding decorticated surfaces and good distraction of each interspace. Screws were then placed from inferior to superior from the cage into the C5 vertebrae and then superior to inferior into the C6 vertebrae through the cage. There was excellent purchase. A final x-ray was done confirming good position of the hardware and Cages. The locking screws were then applied, also with excellent purchase. Following a final copious irrigation, there was good hemostasis and no dural leaks. The carotid pulse was strong. The wounds were then closed in layers using 2-0 Vicryl suture for the platysma muscle, 2-0 Vicryl suture for the subcutaneous tissue, and 4-0 monocryl suture in a subcuticular skin closure. Glue was placed followed by application of a sterile dressing. The drain was hooked to bulb suction. A soft collar was applied. The patient was then carefully returned to the supine position on his hospital bed where he was reversed and extubated and taken to the recovery room having tolerated the procedure well.
[2022-02-23 14:35] VITALS: BP 135/78; PULSE 71; RESP 16; TEMP 36.1; O2SAT 94
[2022-02-23] MEDS: HYDROcodone-acetaminophen 5-325 mg Tablet 1 TAB PO (14:59)
[2022-02-23 15:13] VITALS: BP 132/76; PULSE 75; RESP 18; TEMP 36.2; O2SAT 95
--- NOTE | 2022-02-23 19:43 | ANE.PACU2 ---
Inpatient post-anesthesia follow up: Airway intact: Yes Vital signs: Temperature 97.2 F Pulse Rate 75 Respiratory Rate 18 Blood Pressure 132/76 Pulse Oximetry 95 Oxygen Delivery Me thod Room Air Oxygen Flow Rate 10 Fraction of Inspir ed Oxygen Hydration adequate: Yes Nausea and vomiting: No Pain level: 1 Mental status: Baseline
--- NOTE | 2022-02-26 17:20 | P.HP_ITS ---
Providers/Chief Complaint Primary Care Provider: Caroline Jauregui DO Chief Complaint: STAY LIF C5/6 History of Present Illness HPI HPI Comments Details: Established 61 year old male patient here today for a follow up of neck pain. He rates his pain a 08/20 at todays visit. He is here today to go over recent MRI results and further treatment plan. Chief Complaint: neck pain Onset: years Duration: constant Characteristics: burning, stabbing, tingling Severity: 08/20 Location: cervical region Radiating symptoms: BUE Aggravating factors: laying down Alleviating factors: none Neuro deficits: Reports numbness, tingling, weakness. Denies incontinence of bowel/bladder, saddle anesthesia. Prior tx: cervical fusion in 2006, injections before and after the fusion Review of Systems General: Reports: 10 or more systems reviewed and unremarkable except in HPI and below Const: Denies: fever(s), chills or body aches Card: Denies: chest pain or orthopnea Resp: Denies: dyspnea, productive cough or wheezing GI: Denies: abdominal pain, nausea or vomiting Musc: Reports: neck pain and extremity pain (BUE) Skin/Breast: Denies: changes in skin color or dry skin Neuro: Reports: numbness in extremities (BUE) and weakness in extremities Psych: Denies: anxiety [place]/Lymph: Denies: easy bruising or easy bleeding Medications/Allergies Home Medications Medication Instructions Recorded Confirmed Last Taken Type cyclobenzaprine 10 mg tablet 10 mg PO TID PRN muscle spasm #90 01/23/22 02/19/22 02/17/22 Rx tabs albuterol sulfate 90 mcg/actuation 2 puff inhalation QID PRN 02/19/22 02/19/22 02/23/22 History aerosol inhaler Shortness Of Breath Or Wheezing allopurinol 100 mg tablet 100 mg PO BEDTIME 02/19/22 02/19/22 02/22/22 History amitriptyline 75 mg tablet 75 mg PO DAILY 02/19/22 02/19/22 02/22/22 History budesonide-formoterol HFA 160 2 puff inhalation BID 02/19/22 02/19/22 02/18/22 History mcg-4.5 mcg/actuation aerosol inhaler (Symbicort) carvedilol 6.25 mg tablet 6.25 mg PO BID 02/19/22 02/19/22 02/22/22 History lisinopril 10 mg tablet 10 mg PO BEDTIME 02/19/22 02/19/22 02/22/22 History simvastatin 10 mg tablet 10 mg PO BEDTIME 02/19/22 02/19/22 02/22/22 History tizanidine 2 mg tablet 2 mg PO TID PRN Spasms 02/19/22 02/19/22 Unknown History hydrocodone 5 mg-acetaminophen 325 1 - 2 tab PO .Q4-6H #40 tabs 02/23/22 Unknown Rx mg tablet Allergies Allergy/AdvReac Type Severity Reaction Status Date / Time No Known Allergies Allergy Verified 01/23/22 08:12 PFSH Acute PFSH: Medical History Anxiety Cervical post-laminectomy syndrome Chronic lumbar radiculopathy Essential (primary) hypertension Gouty arthritis Intervertebral disc disorder with radiculopathy of lumbar region Lumbar post-laminectomy syndrome Mixed hyperlipidemia Nausea & vomiting Viral syndrome Surgical History H/O ankle fusion Left H/O esophagogastroduodenoscopy (12/08/20) Grade a esophagitis, mild nonerosive gastritis H/O neck surgery Dr. Gilmar Vsaquez C4-C5 C6-C7 [facility]. [place], [place]. History of back surgery Dr. Gilmar Vasquez. [place], [place]. 01/2012 L5-S1 posterior fusion/fixation. 08/27/2011 L5-S1 decompression, reexploration. 02/2011 L5-S1 decompression. 11/03/2019 Operative records requested. History of nephrectomy Age 15. Congenital 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 15 Status post colonoscopy (12/08/20) normal - 10 years Status post right inguinal hernia repair Family History Father CAD (coronary artery disease) Diabetes Mother Cancer Social History Smoking and tobacco status: current every day smoker cigarettes Packs smoked per day: 0.75 Years cigarettes smoked: 45 Alcohol intake: current Alcohol intake frequency: holidays/special occasions only Alcohol type: beer Household members: spouse Marital status: Current occupational status: disabled History of recent travel: No Vitals/I&O/Wt Last Vital Signs Temp 97.2 F L 02/23/22 15:13 Pulse 75 02/23/22 15:13 Resp 18 02/23/22 15:13 BP 132/76 02/23/22 15:13 Pulse Ox 95 02/23/22 15:13 O2 Del Method 02/23/22 14:35 O2 Flow Rate 10 02/23/22 14:15 Physical Exam Narrative: CONSTITUTIONAL: The patient is a normal appearing in no apparent distress. GENERAL: Patient in no acute distress. CARDIAC: Regular rate and rhythm. CHEST: Normal inspiratory effort, normal respiratory rate. ABDOMEN: Soft and nontender. SKIN: Clear, warm and intact. NEURO?PSYCH: The patient is alert and oriented to person, place and time. Sensorv /SILT Motor StrengthShoulder abduction C5 5/5Wrist extension C6 5/5Elbow extension C7 5/5Hand Tooth Cutter Spur C8 5/5Finger abduction T15/5 Radial/ Ulnar/ Median n intact LowerSensory (SILT)Motor StrengthHin flexion L2/3Ant/inner thigh 5/5Hip adduction L2/3 5/5Knee extension L4 Lat thigh, 5/5Toe dorsiflexion L5 5/5Ankle dorsiflexion L5/ T51Wguawys flexion S1 5/5 DTRBleeps 2+Triceps 2+Brachioradialis 2+Patellar 2+Achilles 2+ MUSCULOSKELETAL: UPPEREXTREMITIES: The patient had full active ROM in fingers, wrist, elbow, and shoulder. The patient demonstrated ability to fully flex/extend/abduct/adduct fingers, make ok sign, cross 2nd/3rd digits, extend 1st digit fully.. Radial pulse 2+, CR<2 seconds. LOWER EXTREMITIES: Pt has full, active ROM of toes, ankle, knee, and hip. Dorsalis pedis/posterior tibialis pulses 2+, CR<2 seconds. SPINE: Skin warm, dry, intact. A&P Assessment and plan (1) Cervical spondylosis with radiculopathy: ACDF C5/6 Attestations Medical Necessity Statement*: failed conservative tx Coding Level of Care Code Acute Code for [facility] Diagnoses Cervical spondylosis with radiculopathy M47.22
== END 2022-02-23 15:25 | disposition home or self-care (01) ==
PROVIDERS: PCP Family Medicine; Visit Provider Orthopaedic Surgery
PROC: 0RB30ZZ Excision of Cervical Vertebral Disc, Open Approach (ICD-10-PCS; CPT 22551; principal; 2022-02-23 14:00)
DX: M47.22 Other spondylosis with radiculopathy, cervical region (principal); J44.9 Chronic obstructive pulmonary disease, unspecified; I10 Essential (primary) hypertension; K21.9 Gastro-esophageal reflux disease without esophagitis; E66.01 Morbid (severe) obesity due to excess calories; Z68.36 Body mass index [BMI] 36.0-36.9, adult; E78.2 Mixed hyperlipidemia; F17.210 Nicotine dependence, cigarettes, uncomplicated
CPT/HCPCS: 20930; 22551; 22845; 22853; 72040; 76000; C1713; C9359; J0330; J0690; J1100; J1170; J2370; J2405; J2704; J2710; J3010; J3490; J7030; L0172

== ENCOUNTER → 2022-03-08 12:50 | Outpatient (BNVA) | payer MEDICARE, SELFPAY | PROVIDERS: PCP Family Medicine; Visit Provider Orthopaedic Surgery | DX: Z47.89 Encounter for other orthopedic aftercare (principal); Z98.1 Arthrodesis status | CPT/HCPCS: 99024 ==

== ENCOUNTER → 2022-04-05 07:55 | Outpatient (BNVA) | payer MEDICARE, SELFPAY | PROVIDERS: PCP Family Medicine; Visit Provider Orthopaedic Surgery | DX: Z98.1 Arthrodesis status (principal); Z47.89 Encounter for other orthopedic aftercare | CPT/HCPCS: 72040; 99024 ==

== ENCOUNTER → 2022-05-17 08:00 | Outpatient (BNVA) | payer MEDICARE, SELFPAY | PROVIDERS: PCP Family Medicine; Visit Provider Orthopaedic Surgery | DX: Z47.89 Encounter for other orthopedic aftercare (principal); Z98.1 Arthrodesis status | CPT/HCPCS: 72040; 99024 ==

== ENCOUNTER → 2022-07-24 11:40 | Outpatient (BNVA) | payer MEDICARE, SELFPAY | PROVIDERS: PCP Family Medicine; Visit Provider Family Medicine | DX: I10 Essential (primary) hypertension (principal) | CPT/HCPCS: 80053; 82043 ==

== ENCOUNTER → 2022-08-23 07:54 | Outpatient (BNVA) | payer MEDICARE, SELFPAY | PROVIDERS: PCP Family Medicine; Visit Provider Orthopaedic Surgery | DX: Z98.1 Arthrodesis status (principal) | CPT/HCPCS: 72040; 99214 ==

== ENCOUNTER 2022-09-10 07:11 | Outpatient (CLI) | payer MEDICARE, SELFPAY ==
--- NOTE | 2022-09-10 07:45 | CT_ITS ---
WS: [id number] LDCT LUNG CANCER SCREENING HISTORY: screening TECHNIQUE: Axial imaging performed from the apices to 1 cm below the costophrenic angles. Coronal and sagittal reformats are submitted with axial MIP series. All CT scans at [facility] use at least one of these dose optimization techniques: automated exposure control; mA and/or kV adjustment per patient size (includes targeted exams where dose is matched to clinical indication); or iterativ e reconstruction. DLP: 117.40 mGy.cm DIvol: Mean CTDIvol: 2.60 (mGy) COMPARISON: 01/02/2021 Diagnostic quality: Satisfactory Lungs: Moderate pulmonary hyperexpansion. Paraseptal emphysema. No pulmonary mass or nodule. Better a eration of both lungs as compared to 01/02/2021. Thin linear scarring or atelectasis at the lingula. Reidentified posterior fat-containing diaphragmatic hernia on the LEFT. No mass, nodule or endobronch ial lesions. Heart: Normal size heart with no pericardial effusion.. Scattered coronary artery calcifications. Other findings: Mild atherosclerosis aorta. Normal size pulmonary artery. No adenopathy. Mild gynecom astia. Surgical clips are noted in the LEFT upper quadrant. Spleen is absent. By history the LEFT kid bacilio is also absent. CT/CT lung screening [id number] IMPRESSION: LUNG-RADS: 1-Negative FOLLOW UP: 12 Month: Continue annual screening with LDCT OTHER FINDINGS (S MODIFIER): None.
== END 2022-09-10 07:12 | disposition home or self-care (01) ==
PROVIDERS: PCP Family Medicine; Visit Provider Family Medicine
DX: Z12.2 Encounter for screening for malignant neoplasm of respiratory organs (principal); F17.219 Nicotine dependence, cigarettes, with unspecified nicotine-induced disorders
CPT/HCPCS: 71271

== ENCOUNTER → 2022-09-25 08:17 | Outpatient (BNVA) | payer MEDICARE, SELFPAY | PROVIDERS: PCP Family Medicine; Visit Provider Orthopaedic Surgery | DX: Z98.1 Arthrodesis status (principal); M47.22 Other spondylosis with radiculopathy, cervical region; Z98.890 Other specified postprocedural states | CPT/HCPCS: 72040; 99214 ==

== ENCOUNTER 2022-10-19 06:39 | Outpatient (CLI) | payer MEDICARE, SELFPAY ==
--- NOTE | 2022-10-19 07:15 | MR_ITS ---
WS: [id number] MRI CERVICAL SPINE with and without contrast. HISTORY: LEFT arm tingling and neck pain. Prior spine surgeries. COMPARISON: 01/15/2022. Radiographs 09/25/2022. Technique: Multiplanar, multisequence noncontrast imaging of the cervical spine. Postcontrast imaging MultiHance 20 mL. Mild straightening of the normal cervical lordosis. Cervical fusion hardware extends from the C4-C7. No marrow edema or fracture. Signal within the cervical cord is normal. Visualized posterior fossa is unremarkable. Craniocervical junction, C1 and C2 relationship, odontoid process and soft tissues are normal. C2-C3: Normal. C3-C4: Mild annular disc bulging. Moderate-sized LEFT foraminal disc osteophyte resulting in moderate LEFT foraminal stenosis. C4-C5: No high-grade central stenosis. There is mild bilateral foraminal stenosis. Small foraminal os teophytes. C5-C6: Mild disc bulging with mild facet arthritis. Mild central with bilateral foraminal stenosis. S mall bilateral foraminal osteophytes and facet disease. C6-C7: Mild central stenosis. There is a central disc protrusion but no cord contact. Bilateral facet arthritis. Mild foraminal stenosis. C7-T1: Normal. Paraspinal soft tissue are normal. Postcontrast images are negative for discitis or osteomyelitis. IMPRESSION: 1. Status post prior cervical fusion hardware extending from C4-C7. 2. C3-4: Moderate LEFT foraminal disc osteophyte resulting in moderate foraminal stenosis. Osteophyte appears to have progressed slightly since the prior study of 01/15/2022. 3. No high-grade central stenosis throughout the cervical spine. 4. Mild foraminal stenosis at C4-5, C5-6 and C6-7. Similar to prior studies. Stenosis Rock due to o steophyte disease.
[2022-10-19] MEDS: gadobenate dimeglumine 20 mL vial IV (07:30)
== END 2022-10-19 06:40 | disposition home or self-care (01) ==
PROVIDERS: PCP Family Medicine; Visit Provider Orthopaedic Surgery
DX: M47.22 Other spondylosis with radiculopathy, cervical region (principal); M25.78 Osteophyte, vertebrae; M48.02 Spinal stenosis, cervical region; Z98.1 Arthrodesis status
CPT/HCPCS: 72156; A9577

== ENCOUNTER → 2022-10-25 07:34 | Outpatient (BNVA) | payer MEDICARE, SELFPAY | PROVIDERS: PCP Family Medicine; Visit Provider Orthopaedic Surgery | DX: R20.0 Anesthesia of skin (principal); R20.2 Paresthesia of skin; Z98.1 Arthrodesis status; Z79.891 Long term (current) use of opiate analgesic | CPT/HCPCS: 99214 ==

== ENCOUNTER → 2022-12-17 09:15 | Outpatient (BNVA) | payer MEDICARE, SELFPAY | PROVIDERS: PCP Family Medicine; Visit Provider Family Medicine | DX: E78.2 Mixed hyperlipidemia (principal); Z12.5 Encounter for screening for malignant neoplasm of prostate | CPT/HCPCS: 80053; 80061; G0103 ==

== ENCOUNTER → 2023-01-17 14:42 | Outpatient (BNVA) | payer MEDICARE, SELFPAY | PROVIDERS: PCP Family Medicine; Visit Provider Specialist | DX: M47.22 Other spondylosis with radiculopathy, cervical region (principal); Z98.1 Arthrodesis status | CPT/HCPCS: 95911 ==

== ENCOUNTER → 2023-01-29 08:22 | Outpatient (BNVA) | payer MEDICARE, SELFPAY | PROVIDERS: PCP Family Medicine; Visit Provider Orthopaedic Surgery | DX: G56.22 Lesion of ulnar nerve, left upper limb (principal); M54.2 Cervicalgia; Z98.1 Arthrodesis status | CPT/HCPCS: 72040; 99213 ==

== ENCOUNTER → 2023-02-22 10:49 | Outpatient (BNVA) | payer MEDICARE, SELFPAY | PROVIDERS: PCP Family Medicine; Referring Provider Orthopaedic Surgery; Visit Provider Student in an Organized Health Care Education/Training Program | DX: M25.522 Pain in left elbow (principal); G56.22 Lesion of ulnar nerve, left upper limb; G56.02 Carpal tunnel syndrome, left upper limb | CPT/HCPCS: 73080; 99214 ==

== ENCOUNTER 2023-04-03 08:34 | Day surgery (SDC) | payer MEDICARE, SELFPAY ==
--- NOTE | 2023-03-19 07:25 | ANES.PREANE2 ---
Pre-Anesthetic Assessment Height/Weight: Height 1.8 m Operation Date: 03/20/23 08:15 Proposed Procedures p Carpal Tunnel Release(Left) - Saul Brewster, DO s Cubital Tunnel Release(Left) - Saul Brewster, DO s Ulnar Nerve Transposition/ possible(Left) - Saul Frandy, DO Familial anesthetic complications: none Social Tobacco 3/4 ppd x 45 years pack(s) per day Exam alert, oriented x 3, clear to auscultation bilaterally and regular rate & rhythm Airway Submandibular: within normal limits Cervical ROM: within normal limits Mallampati: Class I Pulmonary Chronic Obstructive Pulmonary Disease Anesthetic Plan ASA status: 2 Anesthesia: General Risk of > 500 ml blood loss (7ml/kg in children): No Medications/Allergies Home Medications Medication Instructions Recorded Confirmed Last Taken Type lisinopril 10 mg tablet 10 mg PO BEDTIME #90 tabs 12/17/22 03/19/23 03/18/23 Rx tizanidine 2 mg tablet 2 mg PO TID PRN Spasms #270 tabs 12/17/22 03/19/23 03/18/23 Rx simvastatin 10 mg tablet 10 mg PO BEDTIME #90 tabs 12/18/22 03/19/23 03/18/23 Rx hydrocodone 5 mg-acetaminophen 325 1 tab PO Q6H PRN pain 5 days #20 03/14/23 03/19/23 03/19/23 Rx mg tablet tabs albuterol sulfate 90 mcg/actuation 2 puff inhalation 6XD PRN Wheezing 03/19/23 03/19/23 03/19/23 History aerosol inhaler allopurinol 100 mg tablet 100 mg PO DAILY 03/19/23 03/19/23 03/19/23 History amitriptyline 75 mg tablet 75 mg PO BEDTIME 03/19/23 03/19/23 03/18/23 History carvedilol 6.25 mg tablet 6.25 mg PO BID 03/19/23 03/19/23 03/19/23 History Allergies Allergy/AdvReac Type Severity Reaction Status Date / Time No Known Allergies Allergy Verified 02/22/23 10:56 [facility] Anesthesia Medical History Nausea & vomiting Viral syndrome Intervertebral disc disorder with radiculopathy of lumbar region Cervical post-laminectomy syndrome Lumbar post-laminectomy syndrome Essential (primary) hypertension Gouty arthritis Anxiety Mixed hyperlipidemia Chronic lumbar radiculopathy Surgical History Status post colonoscopy (12/08/20) normal - 10 years H/O esophagogastroduodenoscopy (12/08/20) Grade a esophagitis, mild nonerosive gastritis Status post right inguinal hernia repair History of nephrectomy Age 15. Congenital H/O neck surgery Dr. Gilmar Vasquez C4-C5 C6-C7 [facility]. [place], [place]. History of back surgery Dr. Gilmar Vasquez. [place], [place]. 01/2012 L5-S1 posterior fusion/fixation. 08/27/2011 L5-S1 decompression, reexploration. 02/2011 L5-S1 decompression. 11/03/2019 Operative records requested. 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
[2023-03-19 07:48] LABS: Anion Gap 16.6 (5-19); Blood Urea Nitrogen 14 mg/dL (8-23); Calcium 9.9 mg/dL (8.5-10.5); Carbon Dioxide 23 mmol/L (22-29); Chloride 100 mmol/L (98-107); Glomerular Filtration Rate 67.6 mL/min (90-130); Glucose 112 mg/dL (65-115); Osmolality Calculated 281 mOsm/kg (285-295); Potassium 4.6 mmol/L (3.5-5.1); Sodium 135 mmol/L (136-145)
[2023-04-03] VITALS (10 sets, daily range): BP systolic 120–148; BP diastolic 74–89; PULSE 72–82; RESP 17–20; TEMP 36.1–36.4; O2SAT 92–96; BMI 34.2
--- NOTE | 2023-04-03 09:12 | W.PM.OPSFHP ---
Same Day Surgery H&P Indication for Procedure/HPI DATE OF PROCEDURE: April 03, 2023 CHIEF COMPLAINT/INDICATIONFOR SURGICAL PROCEDURE: Left carpal tunnel syndrome, left cubital tunnel syndrome PREOP DIAGNOSIS: Left carpal tunnel syndrome, left cubital tunnel syndrome PLANNED PROCEDURE: Operation Date: 04/03/23 10:20 Proposed Procedures p Carpal Tunnel Release(Left) - Saul Wise DO s Cubital Tunnel Release(Left) - Saul Wise DO s Ulnar Nerve Transposition/ possible(Left) - Saul Wise DO Medications/Allergies* Home Medications Medication Instructions Recorded Confirmed Type albuterol sulfate 90 mcg/actuation 2 puff inhalation 6XD PRN Wheezing 03/19/23 03/19/23 History aerosol inhaler allopurinol 100 mg tablet 100 mg PO DAILY 03/19/23 03/19/23 History amitriptyline 75 mg tablet 75 mg PO BEDTIME 03/19/23 03/19/23 History carvedilol 6.25 mg tablet 6.25 mg PO BID 03/19/23 03/19/23 History Allergies/Adverse Reactions Allergy/AdvReac Type Severity Reaction Status Date / Time No Known Allergies Allergy Verified 03/29/23 09:12 Pertinent History/Comorbid Conditions* Medical History (Updated 03/16/23 @ 19:12 by Saul Wise DO) Nausea & vomiting Viral syndrome Intervertebral disc disorder with radiculopathy of lumbar region Cervical post-laminectomy syndrome Lumbar post-laminectomy syndrome Essential (primary) hypertension Gouty arthritis Anxiety Mixed hyperlipidemia Chronic lumbar radiculopathy Surgical History (Updated 03/08/22 @ 15:17 by Renato Nielsen DO) Status post colonoscopy (12/08/20) normal - 10 years H/O esophagogastroduodenoscopy (12/08/20) Grade a esophagitis, mild nonerosive gastritis Status post right inguinal hernia repair History of nephrectomy Age 15. Congenital H/O neck surgery Dr. Gilmar Vasquez C4-C5 C6-C7 [facility]. [place], [place]. History of back surgery Dr. Gilmar Vasquez. [place], [place]. 01/2012 L5-S1 posterior fusion/fixation. 08/27/2011 L5-S1 decompression, reexploration. 02/2011 L5-S1 decompression. 11/03/2019 Operative records requested. 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 15 H/O ankle fusion Left Family History (Updated 02/19/19 @ 08:59 by Lizeth Croft LPN) Father Mother Diabetes Father CAD (coronary artery disease) Father Cancer Mother Social History Smoking and tobacco/nicotine status: current every day tobacco/nicotine user cigarettes Packs smoked per day: 0.75 Years cigarettes smoked: 45 Alcohol intake: current Alcohol intake frequency: holidays/special occasions only Alcohol type: beer Substance/Drug Use: never Household members: spouse Marital status: Current occupational status: disabled Pertinent Exam Findings alert, oriented x 3, operative site marked and procedure specific exam findings Left upper extremity positive Tinel's over the carpal tunnel and cubital tunnel, positive median nerve compression test Recommendations Surgery/Procedure today Other Plans: Plan to proceed to the OR today with left carpal tunnel release and left cubital tunnel release with possible ulnar nerve transposition Coding Level of Care Code Acute Code for [facility] Campos
[2023-04-03] MEDS: sodium chloride 0.9% 1,000 ML 30 ML IV (09:23)
[2023-04-03] MEDS: scopolamine 1.5 Patch 1 PATCH TRANSDERMA (09:26)
[2023-04-03] MEDS: ketorolac 30 mg/mL INJ IVP (09:26)
[2023-04-03] MEDS: acetaminophen 1,000 MG/100 ML PIGGYBACK 400 MG IV (09:27)
[2023-04-03] MEDS: albuterol 2.5 mg/3 mL Neb INHALATION (09:37)
--- NOTE | 2023-04-03 09:43 | P.ANESUD_ITS ---
Pre-Anesthetic Update Pre-Anesthetic Assessment: Date of Surgery/Procedure: 04/03/23 Preop Saskia gnosis: Left carpal tunnel syndrome, left cubital tunnel syndrome Proposed Procedure: Operation Date: 04/03/23 10:20 Proposed Procedures p Carpal Tunnel Release(Left) - Saul Frandy, DO s Cubital Tunnel Release(Left) - Saul Van Wert, DO s Ulnar Nerve Transposition/ possible(Left) - Saul Van Wert, DO Any changes to Pre-Anesthetic Assessment?: No Last Intake: Intake Last Liquid Date 04/03/23 Last Liquid Time 04:00 Last Solid Date 04/02/23 Last Solid Time 18:00 Vitals: Temperature 97.6 F 04/03/23 09:01 Temperature Source Temporal Artery S can 04/03/23 09:01 Pulse Rate 82 04/03/23 09:01 Respiratory Rate 18 04/03/23 09:01 Blood Pressure 144/89 04/03/23 09:01 Blood Pressure Jennifer n 107 04/03/23 09:01 Pulse Oximetry 96 04/03/23 09:01 Oxygen Delivery Me thod Room Air 04/03/23 09:15 Exam: Pre-Anes Outpt Exam: alert, oriented x 3, clear to auscultation bilaterally and regular rate & rhythm Cardiac Studies: No Data to Display
[2023-04-03] MEDS: ceFAZolin 2,000 MG in sodium chloride 0.9% (plus) 50 ML 100 MG IV (10:20)
[2023-04-03] MEDS: ROPivacaine 0.5% SDV 30 mL 150 MG INJECTION (10:57)
[2023-04-03] MEDS: lidocaine-epi 1% 20 mL INJ INJECTION (10:57)
--- NOTE | 2023-04-03 12:07 | W.PM.BPON ---
Date of Procedure: [April 03, 2023] Surgeon: [Dr. Wise DO] Boring And Filling Machine Operator(s): [Paul Wise PA-C] Procedure(s) performed: [Left carpal tunnel release and left cubital tunnel release with ulnar nerve transposition] Findings of the procedure(s): [Left carpal tunnel and left cubital tunnel syndrome] Estimated blood loss: [10 ml] Specimen(s) removed: [n/a] Post-operative diagnosis: [Left carpal tunnel and left cubital tunnel syndrome]
--- NOTE | 2023-04-03 12:09 | PM.PACU ---
PACU note Narrative: Patient is a 63-year-old male just underwent a left carpal tunnel release and left cubital tunnel release with ulnar nerve transposition. Patient transferred to PACU in stable condition. Pain is well controlled. Dressing on hand is dry and in place. Elbow splint is on. Patient's fingers are warm and well-perfused. Patient can wiggle fingers. normal cap refill under 2 seconds. unable to assess motor due to elbow splint. Unable to assess sensation due to residual localized anesthetic. Exam: awake Disposition: discharged
--- NOTE | 2023-04-03 12:22 | PM.OP ---
Operative Report Date of procedure: April 03, 2023 Surgeon: Saul Wise DO Supervisor Firearms: Paul Wise PA-C: PA was necessary for assistance in this case with hand positioning to execute the procedure, retraction and protection of neurovascular structures as well as to assist with wound closure and dressing application. Procedure: Pre-op diagnosis: Left Carpal Tunnel Syndrome Left cubital tunnel syndrome Postop Diagnosis: Same, subluxating ulnar nerve Procedure done: 1. Left carpal tunnel release 2. Left?cubital?tunnel tunnel release (ulnar nerve decompression at elbow) 3. Left Elbow Ulnar Nerve Transposition Surgeon: Saul Wise DO Estimated blood loss: 10 mL Tourniquet? 43 minutes IV fluids: 900 mL Complications: None Findings: See operative report narrative Condition: stable Disposition: same day Brief History: Patient's been seen and worked up in the outpatient setting and findings consistent with preoperative diagnosis.? Patient has Left carpal tunnel syndrome as well as Left?cubital?tunnel syndrome which has been worked up in the outpatient setting has physical exam findings consistent with this as well as confirmatory nerve conduction/EMG nerve conduction study consistent with diagnosis of cubital tunnel.? Patient's failed conservative treatment.? As result through shared decision making agreed to proceed with? Left carpal tunnel and Left?cubital?tunnel release with possible transposition we talked about treatment options as far as nonoperative and operative intervention.? Understands risk benefits complication alternatives surgical nonsurgical treatment options.? Understanding his risks he agrees to proceed with surgical intervention. Understanding these risks he agrees to proceed with surgery.? Consent obtained in office. Procedure: Patient seen evaluate in the preoperative holding area.? Consent was reviewed and signed with patient.? Correct extremity marked.? Patient seen evaluated by anesthesia department once cleared for surgery was then taken back to the operative suite placed in supine position all bony prominences well-padded patient properly secured to bed.? Left upper extremity placed onto armboard.? Nonsterile tourniquet applied Left upper arm.? Patient then underwent anesthesia per the anesthesia department.? Patient's Left upper extremity was then prepped and draped in standard orthopedic fashion.? Final timeout performed.? Patient received appropriate preoperative antibiotics. Esmarch was used exsanguinate the Left upper extremity.? Tourniquet was insufflated to 250 mmHg. I started with the carpal tunnel release first.? I made a standard open carpal tunnel release starting with the distal most extent in the palm at the Denney's cardinal line and the incision line was made in line with the fourth ray and ended just distal to the wrist crease.? Sharp scalpel incision was made through skin and subcutaneous tissue I then utilizing self retainer then began to dissect with dissection scissors split longitudinally the palmar fascia.? Next I then utilizing my account management assistant Kasdafrankie retractors subsequently utilizing scalpel feathered through the palmaris brevis as well as through the transverse carpal ligament distally.? Once I encountered the floor of the transverse carpal ligament and entered into the carpal tunnel I then switched to dissection scissors.? Carefully released the distal extent of the transverse carpal ligament to the palmar fat.? Care was to protect the recurrent branch and not injured this during this part of the case.? Next I then placed a Siletz underneath the transverse carpal ligament proximally to protect the nerve in the carpal tunnel contents.? And then I subsequently under loupe magnification utilize my dissection scissors to release the transverse carpal ligament into the antebrachial fascia under direct visualization with care to keep my scissors with a curved ulnarly away from the palmar cutaneous branch.? The transverse carpal was then completely decompressed proximally and a Siletz was then placed both distally and proximally throughout the carpal tunnel and had complete decompression of the nerve.? The nerve did appear to have hourglass shape as it went through the carpal tunnel.? With significant irritation noted around the nerve.? No masses were noted within the contents of the carpal tunnel.? This completed the carpal tunnel release and then I subsequently irrigated the wound bed and placed a wet Ray-Makenzie into the incision for later closure. Next marked out the landmarks of the Left elbow of the medial epicondyle and olecranon and made a curvilinear incision following the course of the ulnar nerve at the medial aspect of the elbow.? Sharp scalpel incision was made through skin and subcutaneous tissue.? Next I switched to Littler dissection scissors and spread in plane of the medial antebrachial cutaneous nerve branching which was protected throughout this part of the dissection.? Then I directly came down over the fascia and identified the 2 heads of the FCU fascia and split this Left in the middle and subsequently identified my ulnar nerve distally.? This was then completely released distally under direct visualization and loupe magnification.? Once the nerve was then identified I then subsequently tracked this proximally and released this through Haywood's ligament as well as complete decompression of the nerve proximally all the way past the intermuscular septum.? The nerve was completely released and decompressed both proximally and distally.? Ulnar nerve neurolysis performed and completed both proximally and distally with dissection scissors.? At this point in time the in situ release was completed I then subsequently took the elbow through range of motion and subluxation was noted over the medial epicondyle and plan for ulnar nerve transposition was made.? ?I thoroughly irrigated the nerve throughout the case to prevent it from drying out. Of note the ulnar nerve had significant irritation and inflammation.? Significant proximal swelling was noted of the ulnar nerve proximal to the medial epicondyles and significant decrease in the caliber of the nerve was noted distally. Next while protecting the nerve as well as care to not injure any venous structures I then excised the intermuscular septum proximally with bipolar electrocautery.? This allowed for there to be no entrapment proximally with my transposition.? Next I then performed my standard Z- flap into the fascia.? This created a large thick fascial band that would be sutured to secure the ulnar nerve when its been transposed.? Once the incision was made just through the fascia I then mobilized just the fascia and freed the muscle belly off of this.? ? At this point I then mobilized the nerve and this was transposed into the flexor pronator insertion under the fasica flaps.? There was no evidence of kinking/tethering of the nerve.? this was significantly redundant and lax with no signs of tension or entrapment.? I then utilized a 3-0 Ethibond suture and approximated the fascia flaps that was created and secured with horizontal interrupted mattress stitches.? I was able to place 2 fingers under the repair with no evidence of entrapment and the elbow was taken through range of motion and no areas of entrapment or kinking were noted on the nerve and the nerve was redundant relaxed in all ranges of motion.? This completed my ulnar nerve decompression of the?cubital?tunnel as well as ulnar nerve transposition.? Wound bed was then thoroughly irrigated.? Tourniquet was deflated.? Maintained exact hemostasis with bipolar electrocautery.? I did place a nasima drain to prevent hematoma formation. As result the skin was reapproximated with interrupted Vicryl subcutaneous suture 3-0.? I next utilized a running horizontal mattress stitch with 3-0 nylon.? Extremity was then cleaned and the incision was then covered with Xeroform 4 x 4's ABD Curlex and soft roll and a prefab cubital tunnel splint was then applied with an Hari wrap.? Patient was then awakened from anesthesia and taken to PACU in stable condition. Disposition: Patient taken to PACU in stable condition.? Patient given appropriate discharge instructions as well as pain medication.? We will get Patient in with OT hand therapy for splint takedown dressing change and drain pull in the next couple days. Pt to maintain splint for a total of 10-14 days then may begin OT hand therapy for ROM and nerve glide exercises. Patient will see me in office in 2 weeks.? pt understands? if they has any questions they can contact the office.
--- NOTE | 2023-04-03 13:20 | ANE.PACU2 ---
Inpatient post-anesthesia follow up: Airway intact: Yes Vital signs: Temperature 97 F Pulse Rate 72 Respiratory Rate 18 Blood Pressure 125/76 Pulse Oximetry 96 Oxygen Delivery Me thod Room Air Oxygen Flow Rate Fraction of Inspir ed Oxygen Hydration adequate: Yes Nausea and vomiting: No Pain level: 1 Mental status: Baseline
== END 2023-04-03 13:23 | disposition home or self-care (01) ==
PROVIDERS: Anesthesiology; PCP Family Medicine; Visit Provider Student in an Organized Health Care Education/Training Program
PROC: (CPT 64721; principal; 2023-04-03 10:20)
PROC: (CPT 64718; 2023-04-03 10:20)
PROC: (CPT 64718; 2023-04-03 10:20)
DX: G56.02 Carpal tunnel syndrome, left upper limb (principal); G56.22 Lesion of ulnar nerve, left upper limb; F17.210 Nicotine dependence, cigarettes, uncomplicated; J44.9 Chronic obstructive pulmonary disease, unspecified; I10 Essential (primary) hypertension; E78.2 Mixed hyperlipidemia
CPT/HCPCS: 64718; 64721; 80048; J0131; J0690; J1100; J1170; J1885; J2371; J2405; J2704; J2795; J3010; J7030; J7613

== ENCOUNTER 2023-04-05 06:00 | Outpatient (RCR) | payer MEDICARE, SELFPAY | END 2023-04-11 23:59 | disposition home or self-care (01) | LOC: SOT 06:00 | PROVIDERS: Visit Provider Student in an Organized Health Care Education/Training Program | DX: Z47.89 Encounter for other orthopedic aftercare (principal) | CPT/HCPCS: 97165; 97530 ==

== ENCOUNTER 2023-04-12 06:00 | Outpatient (RCR) | payer MEDICARE, SELFPAY | END 2023-05-12 23:59 | disposition home or self-care (01) | LOC: SOT 06:00 | PROVIDERS: Visit Provider Student in an Organized Health Care Education/Training Program | DX: Z47.89 Encounter for other orthopedic aftercare (principal) | CPT/HCPCS: 97110; 97140; 97530 ==

== ENCOUNTER → 2023-04-16 09:58 | Outpatient (BNVA) | payer MEDICARE, SELFPAY | PROVIDERS: Visit Provider Physician Assistant | DX: Z98.890 Other specified postprocedural states (principal) | CPT/HCPCS: 99024 ==

== ENCOUNTER → 2023-06-14 07:24 | Outpatient (BNVA) | payer MEDICARE, SELFPAY | PROVIDERS: PCP Family Medicine; Visit Provider Student in an Organized Health Care Education/Training Program | DX: Z98.890 Other specified postprocedural states (principal) | CPT/HCPCS: 99213 ==

== ENCOUNTER → 2023-09-09 09:00 | Outpatient (BNVA) | payer MEDICARE, SELFPAY | PROVIDERS: PCP Family Medicine; Visit Provider Family Medicine | DX: K21.9 Gastro-esophageal reflux disease without esophagitis (principal); E78.5 Hyperlipidemia, unspecified; K75.9 Inflammatory liver disease, unspecified | CPT/HCPCS: 80053; 80061; 80074; 84439; 84443; 85025 ==

== ENCOUNTER 2023-09-13 07:56 | Outpatient (CLI) | payer MEDICARE, SELFPAY ==
--- NOTE | 2023-09-13 08:15 | CT_ITS ---
WS: [id number] LDCT LUNG CANCER SCREENING TECHNIQUE: Noncontrast CT of the chest with coronal and sagittal reformatted images. CLINICAL INFORMATION: screening COMPARISON: 09/10/2022 DLP: 140.17 mGy.cm DIvol: Mean CTDIvol: 2.80 (mGy) All CT scans at [facility] use at least one of these dose optimization techniques: automat ed exposure control; mA and/or kV adjustment per patient size (includes targeted exams where dose is matched to clinical indication); or iterative reconstruction. FINDINGS: Hyperinflation. Paraseptal emphysematous change. Tiny nodule RIGHT middle lobe. Micronodularity RIGHT lower lobe posteromedially. Atelectasis in the lingula. Mild aortic calcification. No mediastinal or hilar lymphadenopathy. 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 Unchanged posterior LEFT fat-containing hernia . No axillary lymphadenopathy. Mild thoracic kyphosis. Postoperative changes lower cervical and upper thoracic spine. Coronary calcification. RIGHT adrenal gland is normal. Partially visualized tiny par enchymal calculus RIGHT kidney. Normal LEFT adrenal gland. Normal GE junction. CT/CT lung screening [id number] IMPRESSION: LUNG-RADS: 2-Benign Appearance or Behavior FOLLOW UP: 12 Month: Continue annual screening with LDCT
== END 2023-09-13 07:57 | disposition home or self-care (01) ==
PROVIDERS: PCP Family Medicine; Visit Provider Family Medicine
DX: Z12.2 Encounter for screening for malignant neoplasm of respiratory organs (principal); F17.219 Nicotine dependence, cigarettes, with unspecified nicotine-induced disorders; J43.9 Emphysema, unspecified; J98.11 Atelectasis; Z90.5 Acquired absence of kidney; I70.0 Atherosclerosis of aorta
CPT/HCPCS: 71271; 80053; 80061; 80074; 84439; 84443; 85025

== ENCOUNTER → 2024-09-28 10:13 | Outpatient (BNVA) | payer MEDICARE, SELFPAY | PROVIDERS: PCP Family Medicine; Visit Provider Family Medicine | DX: Z13.6 Encounter for screening for cardiovascular disorders (principal); N40.0 Benign prostatic hyperplasia without lower urinary tract symptoms | CPT/HCPCS: 80053; 80061; 84153; 85025 ==

== ENCOUNTER 2024-11-03 06:47 | Outpatient (CLI) | payer MEDICARE, SELFPAY ==
--- NOTE | 2024-11-03 07:00 | CT_ITS ---
WS: [id number] LDCT LUNG CANCER SCREENING HISTORY: screening TECHNIQUE: Axial imaging performed from the apices to 1 cm below the costophrenic angles. Coronal and sagittal reformats are submitted with axial MIP series. All CT scans at [facility] use at least one of these dose optimization techniques: automated exposure control; mA and/or kV adjustment per patient size (includes targeted exams where dose is matched to clinical indication); or iterative reconstruction. DLP: 102.40 mGy.cm DIvol: Mean CTDIvol: 2.20 (mGy) COMPARISON: 09/13/2023, 01/02/2021, 09/10/2022 Diagnostic quality: Satisfactory Lungs: Moderate pulmonary hyperexpansion. There are numerous bilateral tiny micronodules scattered throughout the lungs. No lung mass. Subsolid area in the anterior RIGHT upper lobe has slowly increased in size since 2020. This is probably an area of bronchiectasis or honeycombing. Heart: Normal size heart with no pericardial effusion.. Other findings: Mild atherosclerosis aorta. Normal size pulmonary artery. No adenopathy. Small hiatal hernia. Prior LEFT nephrectomy. Thoracic spondylosis. CT/CT lung screening [id number] IMPRESSION: LUNG-RADS: 2-Benign Appearance or Behavior FOLLOW UP: 12 Month: Continue annual screening with LDCT OTHER FINDINGS (S MODIFIER): None.
== END 2024-11-03 06:48 | disposition home or self-care (01) ==
LOC: RAD 06:48
PROVIDERS: PCP Family Medicine; Visit Provider Family Medicine
DX: Z12.2 Encounter for screening for malignant neoplasm of respiratory organs (principal); F17.219 Nicotine dependence, cigarettes, with unspecified nicotine-induced disorders; R91.1 Solitary pulmonary nodule; K44.9 Diaphragmatic hernia without obstruction or gangrene; Z90.5 Acquired absence of kidney; M47.814 Spondylosis without myelopathy or radiculopathy, thoracic region
CPT/HCPCS: 71271

== ENCOUNTER → 2024-12-28 06:49 | Outpatient (BNVA) | payer MEDICARE, SELFPAY | PROVIDERS: PCP Family Medicine; Visit Provider Podiatrist Foot & Ankle Surgery | DX: M79.672 Pain in left foot (principal); G89.29 Other chronic pain; M19.072 Primary osteoarthritis, left ankle and foot; Z98.1 Arthrodesis status | CPT/HCPCS: 73630; 99204 ==

== ENCOUNTER 2025-01-28 09:46 | Outpatient (CLI) | payer MEDICARE, SELFPAY | END 2025-01-28 09:47 | disposition home or self-care (01) | LOC: SPT 09:47 | PROVIDERS: PCP Family Medicine; Visit Provider Podiatrist Foot & Ankle Surgery | DX: Z46.89 Encounter for fitting and adjustment of other specified devices (principal); M19.072 Primary osteoarthritis, left ankle and foot | CPT/HCPCS: 97161 ==